=== PATIENT | female | born 1985 | race Caucasian/White ===

== ENCOUNTER → 2016-09-22 | Outpatient (CLI) | payer MEDICAID ==
[2016-09-22 15:39] LABS: CH 32.8; CHCM 35.2; HCT 34.6 % (34.0-46.0); HDW 3.37; HGB 11.8 gm/dL (11.4-16.0); MCH 32.1 pg (25.0-35.0); MCHC 34.2 g/dL (31.0-37.0); MCV 93.9 fL (80.0-100.0); Mean Platelet Volume 6.8; RBC 3.68 m/uL (3.80-5.40); RDW 14.1 % (11.5-15.5)
== END | disposition home or self-care (01) ==
LOC: LABWHC1 14:07
PROVIDERS: ATTEND Obstetrics & Gynecology
DX: Z34.82 Encounter for supervision of other normal pregnancy, second trimester (principal); Z3A.00 Weeks of gestation of pregnancy not specified
CPT/HCPCS: 36415; 82950; 85027

== ENCOUNTER → 2016-09-26 | Outpatient (CLI) | payer MEDICAID ==
[2016-09-26 12:57] LABS: Glucose 3 Hour, Gest 65 mg/dL
== END | disposition home or self-care (01) ==
LOC: LABWHC1 08:18
PROVIDERS: ATTEND Obstetrics & Gynecology
DX: O99.810 Abnormal glucose complicating pregnancy (principal); Z3A.00 Weeks of gestation of pregnancy not specified
CPT/HCPCS: 36415; 82951; 82952

== ENCOUNTER → 2016-10-17 | Outpatient (CLI) | payer MEDICAID ==
--- NOTE | 2016-10-17 09:11 | US ---
EXAMINATION TYPE: US abdomen complete DATE OF EXAM: 10/17/2016 8:17 AM COMPARISON: NONE CLINICAL HISTORY: R10.12 ABD PAIN LUQ. EXAM MEASUREMENTS: Liver Length: 15.4 cm Gallbladder Wall: 0.3 cm CBD: 0.4 cm Spleen: 12.2 cm Right Kidney: 11.5 x 5.3 x 5.9 cm Left Kidney: 10.2 x 5.5 x 4.6 cm Findings: Pancreas: limited evaluation, portions obscured by overlying bowel Liver: appears wnl Gallbladder: no evidence of stones Evidence for sonographic Fields's sign: no CBD: appears wnl Spleen: wnl Right Kidney: cystic area mid Left Kidney: no evidence of hydronephrosis or mass Upper IVC: wnl Abd Aorta: visualized portions appear wnl, bifurcation obscured Scanned LUQ within patient's area of concern, no obvious abnormality by ultrasound at this time as vi sualized The liver is homogenous. The intrahepatic portion of the IVC and proximal abdominal aorta are within normal limits. There is no evidence of cholelithiasis. Common bile duct is unremarkable. The visu alized portions of the pancreas are homogenous. The spleen is unremarkable. Kidneys are symmetric a nd free of hydronephrosis. Small subcentimeter simple cyst right kidney.. IMPRESSION: 1. Small right renal cyst. Otherwise unremarkable examination.
== END | disposition home or self-care (01) ==
LOC: RADUSWWP 07:40
PROVIDERS: ATTEND Obstetrics & Gynecology
DX: N28.1 Cyst of kidney, acquired (principal); R10.12 Left upper quadrant pain
CPT/HCPCS: 76700

== ENCOUNTER → 2016-11-06 | Outpatient (CLI) | payer MEDICAID ==
--- NOTE | 2016-11-06 15:23 | US ---
EXAMINATION TYPE: US OB anatomy transabd DATE OF EXAM: 11/06/2016 2:32 PM COMPARISON: US on PACS first trimester May 30, 2016 HISTORY: Uterine fibroid. Large for dates. TECHNIQUE: Transabdominal (TA) pelvic ultrasound. EXAM MEASUREMENTS: GESTATIONAL AGE / DATING Physician Established: (32 weeks/2 days) EDC: 12/30/2016 Dates by LMP: (32 weeks/2 days) EDC: 12/30/2016 Dates by First Scan: (32 weeks/ 2 days) EDC: 12/30/2016 Dates by Current Scan for: (32 weeks/ 4 days) EDC: 12/28/2016 SURVEY IUP: Single PLACENTA: Anterior/fundal PREVIA: No previa YAJAIRA: 20.3 cm CERVICAL LENGTH (transabdominal: norm > 3.0cm): 3.8 cm BIOMETRY PRESENTATION: Vertex LIE: Longitudinal BPD: 7.9 cm 31 weeks / 4 days HC: 29.7 cm 32 weeks / 6 days AC: 29.0 cm 33 weeks / 0 days FL: 6.5 cm 33 weeks / 3 days ESTIMATED WEIGHT IN GRAMS: 2088 grams ESTIMATED WEIGHT IN LBS/OZS: 4 lbs. 10 oz. WEIGHT PERCENTAGE BASED ON ESTABLISHED DATE: 61.7 % HC/AC: 1.0 FL/AC: 22.4 HEART RATE: 142 bpm RHYTHM: Normal ANATOMY SEEN (within normal limits): * Lateral Vent (< 1 cm) 0.7 cm * Cisterna Magna (< 1.1 cm) 0.7 cm * Nuchal Fold (< 0.6 cm) 0.6 cm * Cerebellum (varies with age) 2.5 cm Choroid Plexus (bilateral) Midline Falx Cavus Septi Pellucidi Stomach Situs Nose / Lips Diaphragm Kidneys (bilateral) Bladder Cord Insert Three Vessel Cord Longitudinal Spine Transverse Spine ANATOMY SEEN (does not appear within normal limits): ANATOMY NOT SEEN: Four Chamber Heart Outflow tracts: LVOT/RVOT Arms (bilateral) Legs (bilateral) MATERNAL WALL MEASUREMENT: cm from skin to anterior uterine wall (if exam limited due to body habitus ). Uterine fibroid to left of midline, lower uterine segment = 12.4 x 8.2 x 7.7 cm Single live intrauterine gestation is redemonstrated. Normal cephalad presentation to fetus is seen. There is no ultrasound evidence for placenta previa. Amniotic fluid index is upper limits of normal t o mildly prominent. biometry measurements are congruent and within normal limits. Detailed anatomical survey shows no suspicious abnormality during real-time scanning. No suspicious abnormality is seen on still image s saved. There is suboptimal still images saved of the upper and lower extremities as well as four-ch cheikh heart and outflow tracts. Exam is noted suboptimal due to advanced age. IMPRESSION: As above
== END | disposition home or self-care (01) ==
LOC: RADUSWWP 13:42
PROVIDERS: ATTEND Obstetrics & Gynecology
DX: O36.63X0 Maternal care for excessive fetal growth, third trimester, not applicable or unspecified (principal); Z3A.32 32 weeks gestation of pregnancy
CPT/HCPCS: 76811

== ENCOUNTER → 2016-12-01 | Outpatient (CLI) | payer MEDICAID ==
--- NOTE | 2016-12-01 12:16 | US ---
EXAMINATION TYPE: US OB anatomy transabd DATE OF EXAM: 12/01/2016 11:26 AM COMPARISON: NONE HISTORY: 31-year-old female [id number] LARGE FOR DATES, Uterine fibroid TECHNIQUE: Transabdominal (TA) FINDINGS: EXAM MEASUREMENTS: GESTATIONAL AGE / DATING Physician Established: (35 weeks/6 days) EDC: 12/30/16 Dates by LMP: unknown Dates by First Scan: (35 weeks/6 days) EDC: 12/30/16 Dates by Current Scan for: (36 weeks/1 days) EDC: 12/28/16 SURVEY IUP: Single PLACENTA: Anterior/fundal PREVIA: No previa YAJAIRA: 19.1 cm Normal CERVICAL LENGTH (transabdominal: norm > 3.0cm): 3.1 cm BIOMETRY PRESENTATION: Vertex LIE: Longitudinal BPD: 8.7 cm 35 weeks / 1 days HC: 32.1 cm 36 weeks / 2 days AC: 32.5 cm 36 weeks / 3 days FL: 7.1 cm 36 weeks / 3 days ESTIMATED WEIGHT IN GRAMS: 2886 grams ESTIMATED WEIGHT IN LBS/OZS: 6 lbs. 6 oz. WEIGHT PERCENTAGE BASED ON ESTABLISHED DATE: 61 % HC/AC: 0.99 normal FL/AC: 22% normal HEART RATE: 146 bpm RHYTHM: Normal ANATOMY SEEN (within normal limits): Cavus Septi Pellucidi Four Chamber Heart Outflow tract: LVOT Stomach Situs Nose / Lips Diaphragm Bladder Three Vessel Cord ANATOMY NOT SEEN ARE SUBOPTIMALLY VISUALIZED: due to position and age Lateral Vent (< 1 cm) Midline Falx Cisterna Magna (< 1.1 cm) Cerebellum (varies with age) Choroid Plexus (bilateral) Outflow tract: RVOT Longitudinal Spine Transverse Spine Arms (bilateral) Legs (bilateral) Cord Insert Kidneys (bilateral) [employer] NOTES: Single viable IUP 36wks/1day with ENZO of 12/28/16. Complex area (fibroid) noted le ft uterus as noted on prior exam = 13.8 x 6.9 x 9.4cm IMPRESSION: 1. Single live intrauterine with established gestational age of 35 weeks 6 days by prior da ting scan. Current ultrasound biometry is concordant (36 weeks 1 day) placing the child at the 61st p ercentile for weight. 2. A large 13.8 cm heterogeneous area, suspected fibroid is again seen along the left lower uterine s egment and appears primarily intramural.
== END | disposition home or self-care (01) ==
LOC: RADUSWWP 10:20
PROVIDERS: ATTEND Obstetrics & Gynecology
DX: O36.63X0 Maternal care for excessive fetal growth, third trimester, not applicable or unspecified (principal); Z3A.36 36 weeks gestation of pregnancy
CPT/HCPCS: 76805

== ENCOUNTER 2016-12-18 23:16 | Inpatient (IN) | payer MEDICAID ==
[2016-12-18] MEDS ORDERED: CITRIC ACID-SODIUM CITRATE 15 ML CUP PO ONE (23:31)
[2016-12-18] MEDS ORDERED: ceFAZolin 2 GM in SODIUM CHLORIDE 0.9% 100 ML IVPB ONE (23:31)
[2016-12-18] MEDS ORDERED: LACTATED RINGERS 1,000 ML IV ONE (23:31)
[2016-12-18] MEDS ORDERED: LACTATED RINGERS 1,000 ML IV SCH (23:45)
[2016-12-19 00:04] LABS: Basophils % (A) 0 %; CH 33.7; Eosinophils # (A) 0.2 k/uL (0-0.7); Eosinophils % (A) 1 %; HCT 39.2 % (34.0-46.0); HDW 3.34; HGB 13.9 gm/dL (11.4-16.0); Luc # (Auto) 0.24; Luc % (Auto) 2; Lymphocytes # (A) 1.3 k/uL (1.0-4.8); Lymphocytes % (A) 9 %; MCH 33.3 pg (25.0-35.0); MCHC 35.4 g/dL (31.0-37.0); MCV 94.2 fL (80.0-100.0); Mean Platelet Volume 6.6; Monocytes # (A) 0.6 k/uL (0-1.0); Monocytes % (A) 4 %; Neutrophils # (A) 11.3 k/uL (1.3-7.7); Neutrophils % (A) 83 %; RBC 4.16 m/uL (3.80-5.40); WBC 13.6 k/uL (3.8-10.6); WBC (Perox) 14.04
[2016-12-19] MEDS ORDERED: CELLULOSE,OXIDIZED 1 EACH EACH MISCELLANE ONE (00:20)
[2016-12-19] MEDS ORDERED: Acetaminophen-Codeine 300-30mg TAB PO PRN ×3 (00:47→00:52)
[2016-12-19] MEDS ORDERED: METOCLOPRAMIDE 5 MG/ML 2 ML VIAL IVP PRN (00:47)
[2016-12-19] MEDS ORDERED: LANOLIN CREAM 5 GM TUBE TOPICAL PRN (00:47)
[2016-12-19] MEDS ORDERED: ONDANSETRON 4 MG/2 ML VIAL IVP PRN (00:47)
[2016-12-19] MEDS ORDERED: ZOLPIDEM 5 MG TAB PO PRN (00:47)
[2016-12-19] MEDS ORDERED: ACETAMINOPHEN TAB 325 MG TAB PO PRN (00:47)
[2016-12-19] MEDS ORDERED: diphenhydrAMINE 50 MG/ML 1 ML VIAL IVP PRN ×2 (00:47→06:06)
[2016-12-19] MEDS ORDERED: diphenhydrAMINE 25 MG CAP PO PRN (00:47)
[2016-12-19] MEDS ORDERED: NALOXONE 0.4 MG/ML 1 ML VIAL IV PRN ×2 (00:47→06:06)
[2016-12-19 00:53] VITALS: BMI 29.9
[2016-12-19] MEDS ORDERED: OXYTOCIN 20 UNITS/1000 ML NS 1,000 ML IV SCH (01:00)
--- NOTE | 2016-12-19 01:13 | P.HPOB ---
History of Present Illness H&P Date: 12/19/16 Chief Complaint: Contractions and previous This patient is a pleasant 31-year-old 3 para 2 female estimated date of confinement 12/30/2016 estimated gestational age 38-3/7 weeks who presents to labor and delivery with complaints of regular painful contractions since 7: 00 this evening. Patient's had 2 previous sections and has requested repeat . is complicated by a very large uterine fibroid approximately 13 cm in dimensions. Patient was seen by maternal medicine and has had serial growth ultrasounds and antepartum testing. Patient is now found to be in active labor. Review of Systems Constitutional: Denies chills, Denies fever Ears, nose, mouth and throat: Denies headache, Denies sore throat Cardiovascular: Denies chest pain, Denies shortness of breath Respiratory: Denies cough Gastrointestinal: Reports heartburn Genitourinary: Reports Menstruation: Reports amenorrhea Musculoskeletal: Denies myalgias Integumentary: Denies pruritus, Denies rash Neurological: Denies numbness, Denies weakness Psychiatric: Denies anxiety, Denies depression Endocrine: Denies fatigue, Denies weight change Past Medical History Past Medical History: Asthma, GERD/Reflux Additional Past Medical History / Comment(s): CROHN'S, HYPOGLYCEMIA, BARRON, patient has a large uterine fibroid approximately 13 cm in dimensions History of Any Multi-Drug Resistant Organisms: None Reported Past Surgical History: Section Additional Past Surgical History / Comment(s): X2, COLONOSCOPY,EGD, left carpal tunnel Past Anesthesia/Blood Transfusion Reactions: No Reported Reaction Past Psychological History: No Psychological Hx Reported Smoking Status: Never smoker Past Alcohol Use History: Occasional Past Drug Use History: None Reported - Past Family History Father Family Medical History: No Reported History Additional Family Medical History / Comment(s): hypertension Mother Family Medical History: No Reported History Medications and Allergies Home Medications Medication Instructions Recorded Confirmed Type Multivitamins, Thera [Multivitamin] 1 each PO DAILY 04/16/15 12/19/16 History L.acidoph,Paracasei, B.lactis 1 each PO DAILY 12/19/16 12/19/16 History [Probiotic] Allergies Allergy/AdvReac Type Severity Reaction Status Date / Time infliximab [From Remicade] Allergy Anaphylaxis Verified 12/18/16 23:30 Exam - Vital Signs Vital signs: Vital Signs Temp Pulse Resp BP 12/18/16 23:30 97.2 F L 113 H 16 139/81 Intake and Output 12/18/16 12/18/16 12/19/16 14:59 22:59 06:59 Other: Weight 81.647 kg Patient Weight 12/19/16 06:59 Weight 81.647 kg - OBG Physical Exam Abdomen: bowel sounds normal, no diffuse tenderness, no bruit present, no guarding noted, no hepatomegaly, no splenomegaly, no mass Vulva: both: normal Vagina: normal moisture, no discharge Cervix: Cervix is 1-2 cm dilated percent effaced. Cervix: no lesion, no discharge Uterus: enlarged (Uterine fundal height is much larger than dates) Results blood work shows she is A positive, rubella immune, RPR nonreactive, hepatitis B negative, HIV is nonreactive, ultrasounds have shown normal anatomy with a large uterine fibroid, group B strep was negative, Glucola Was abnormal with a normal three-hour gtt. Result Diagrams: 12/18/16 23:43 Abnormal Lab Results - Last 24 Hours (Table) 12/18/16 Range/Units 23:43 WBC 13.6 H (3.8-10.6) k/uL Neutrophils # 11.3 H (1.3-7.7) k/uL Assessment and Plan (1) Third trimester Narrative/Plan: This is a pleasant 31-year-old 3 para 2 female 38-3/7 weeks gestation with previous section 2 and known large uterine fibroid. Plan is repeat section for active labor. Patient and I have discussed the surgery including the risks of infection, bleeding, possible injury to bowel, bladder, vessels, and/or other organs. Patient understands risk of DVT and pulmonary embolism. All the patient's questions are answered and a written consent is obtained. Status: Acute (2) Fibroid uterus Status: Acute (3) Previous section Status: Acute (4) Spontaneous onset of labor Status: Acute
--- NOTE | 2016-12-19 01:21 | P.OP ---
Date of Procedure: 12/19/16 Preoperative Diagnosis: #1: 38-3/7 week . #2: Active labor. #3: Large uterine fibroid. #4: Previous section 2. Postoperative Diagnosis: Same Procedure(s) Performed: Repeat low transverse section. Anesthesia: spinal Surgeon: Ruben Pedersen Inorganic Chemistry Professor #1: Penny Weaver Estimated Blood Loss (ml): 800 Pathology: other (Placenta) Condition: stable Disposition: floor Indications for Procedure: Please see dictated H&P for intimate details of this patient's admission. In brief summary this is a pleasant 31-year-old 3 para 2 female 38-3/7 weeks gestation who is admitted to labor and delivery in active labor. Patient' s had 2 previous section and was scheduled for repeat this coming Thursday. Patient has a known large uterine fibroid. Patient does understand the surgery and risks including risks of infection, bleeding, possible injury to bowel, bladder, vessels, and/or other organs. She also understands she is at increased risk of bleeding due to her uterine fibroid. All the patient's questions are answered and a written consent is obtained. Operative Findings: This patient had a vigorous viable female infant Apgars were 8 and 9 delivery time is 0012 hours. She had a approximately 13 cm left lateral uterine fibroid in the lower uterine segment that displaced the fetus up into the fundal part of the uterus. Both tubes and ovaries appear normal for term gestation. Description of Procedure: This patient had a Sousa catheter placed to straight drain. She is subsequently taken to the operating room where she is sat up and spinal anesthetic is administered without incident. With an adequate level of anesthesia she has abdominal prep and drape. Scalpels then taken in the previous Pfannenstiel incision is incised. A second scalpel is taken down to the fascia and the fascia scored with the scalpel. Fascial incision extended bilaterally using the Lund scissors. Fascia is then dissected off the rectus muscles. The rectus muscles are and the peritoneum was identified and entered sharply. Peritoneal incision extended superior and inferior without difficulty. The bladder blade is then placed. I inspected the pelvis was large fibroid the lower uterine segment a left side and the broad ligament area. The bladder is up high on the lower uterine segment this is taken down sharply with the Metzenbaums without difficulty. Then using a scalpel and make a low transverse incision above the fibroid taking special care to avoid cutting into the fibroid itself. The uterus is then entered bluntly with a hemostat and there is loss of clear fluid. The infant's head is then guided through the incision with fundal pressure we have delivery the infant's head. Mouth and nares are bulb suctioned. There is no evidence of a nuchal cord. We then have deliver the rest of this 's body. It is a vigorous viable female infant Apgars are 8 and 9 delivery time is 0012 hours. After delivery of the the umbilical cord is doubly clamped and then cut. It appears to be trivascular. The placenta is then manually extracted intact. I was able to externalize the uterus at this time and the uterine incision demarcated with Pro clamps. Uterine incision is somewhat over the fibroid on the left side using 0 Vicryl suture in a running locked fashion I closed this in 3 layers. Good hemostasis is noted. With this done, I placed a piece of Interceed over the lower uterine segment. Excellent hemostasis is noted. The uterus is placed back into the abdomen. All fluid has been removed. Final inspection shows good hemostasis. The parietal peritoneum was then closed using 0 Vicryl running fashion. Fascia is then closed using 0 PDS. Fascial incision is intact and hemostatic. Subcutaneous tissues and closed using a 3-0 Vicryl. Skin is and closed using vandana. All counts are correct 3. There are no complications. Infant and mother are taken to the birthing suite in satisfactory condition.
--- NOTE | 2016-12-19 05:46 | P.PNOBGPC ---
Subjective - Subjective Patient reports: Reports appetite normal, Reports voiding normally, Reports pain well controlled, Reports ambulating normally : doing well Objective - Vital Signs Latest vital signs: Vital Signs Temp Pulse Resp BP Pulse Ox 12/19/16 04:00 98.6 F 87 16 116/70 99 12/19/16 02:46 98.2 F 88 18 101/60 99 12/19/16 02:16 88 16 111/57 12/19/16 01:46 98.2 F 85 16 104/74 99 12/19/16 01:31 91 16 92/72 98 12/19/16 01:16 87 16 90/63 99 12/19/16 01:01 86 16 99/54 98 12/19/16 00:46 98.0 F 83 16 100/49 99 12/18/16 23:30 97.2 F L 113 H 16 139/81 Intake and Output 12/18/16 12/18/16 12/19/16 14:59 22:59 06:59 Intake Total 120 Output Total 1500 Balance -1380 Intake: Oral 120 Output: Urine 700 Estimated Blood Loss 800 Other: Weight 81.647 kg Patient Weight 12/19/16 06:59 Weight 81.647 kg - Exam Lungs: bilateral: normal Abdomen: Present: normal appearance, soft. Absent: distention, tenderness Incision: Present: normal, dry, intact Uterus: Present: normal, firm - Labs Labs: Abnormal Lab Results - Last 24 Hours (Table) 12/18/16 Range/Units 23:43 WBC 13.6 H (3.8-10.6) k/uL Neutrophils # 11.3 H (1.3-7.7) k/uL Assessment and Plan (1) Third trimester Narrative/Plan: Patient is resting without complaints. Vital signs are stable she's afebrile. Her lochia appears normal at this time. Plan today is to discontinue her catheter, advance her diet, check a CBC this morning, encourage ambulation, and allow her to shower later on. Current Visit: Yes Status: Acute Code(s): Z33.1 - STATE, INCIDENTAL SNOMED Code(s): 12252799 (2) Fibroid uterus Current Visit: No Status: Acute Code(s): D25.9 - LEIOMYOMA OF UTERUS, UNSPECIFIED SNOMED Code(s): 70634190 (3) Previous section Current Visit: No Status: Acute Code(s): Z98.89 - OTHER SPECIFIED POSTPROCEDURAL STATES * DO NOT USE * SNOMED Code(s): 598877845 (4) Spontaneous onset of labor Current Visit: No Status: Acute Code(s): ZXC1305 - SNOMED Code(s): 67385910
[2016-12-19] MEDS ORDERED: MORPHINE SULFATE 4 MG/ML SYRINGE IVP PRN (06:06)
[2016-12-19 06:53] LABS: Basophils # (A) 0.1 k/uL (0-0.2); Basophils % (A) 0 %; CH 32.7; CHCM 34.4; Eosinophils % (A) 0 %; HCT 37.1 % (34.0-46.0); HDW 3.48; HGB 12.8 gm/dL (11.4-16.0); Luc # (Auto) 0.22; Luc % (Auto) 2; Lymphocytes # (A) 1.1 k/uL (1.0-4.8); Lymphocytes % (A) 8 %; MCH 33.1 pg (25.0-35.0); MCHC 34.5 g/dL (31.0-37.0); MCV 96.1 fL (80.0-100.0); Mean Platelet Volume 7.1; Monocytes # (A) 0.6 k/uL (0-1.0); Monocytes % (A) 5 %; Neutrophils # (A) 10.5 k/uL (1.3-7.7); Neutrophils % (A) 84 %; Poikilocytosis Slight; RBC 3.86 m/uL (3.80-5.40); RDW 13.9 % (11.5-15.5); WBC 12.4 k/uL (3.8-10.6); WBC (Perox) 12.45
[2016-12-19] MEDS: KETOROLAC 30 MG/ML 1 ML VIAL IVP PRN ×3 (07:45→21:35)
[2016-12-19] MEDS: LACTATED RINGERS 1,000 ML IV SCH ×2 (09:03→10:01)
--- NOTE | 2016-12-19 09:55 | P.PN ---
Progress Note - Text Postoperative day 1 status post section under spinal anesthesia, and intrathecal morphine given for postoperative analgesia, patient doing well, there is no anesthesia related complications, further management as per her primary team
[2016-12-19] MEDS: SENNOSIDES-DOCUSATE SODIUM 1 EACH TAB PO SCH ×2 (10:01→21:37)
[2016-12-19] MEDS ORDERED: OXYTOCIN 10 UNIT/ML 1 ML VIAL ONE (23:57)
[2016-12-19] MEDS ORDERED: ONDANSETRON 4 MG/2 ML VIAL ONE (23:57)
[2016-12-19] MEDS ORDERED: ceFAZolin 1,000 MG VIAL ONE (23:57)
[2016-12-19] MEDS ORDERED: NALBUPHINE 10 MG/ML AMPUL ONE (23:57)
[2016-12-19] MEDS ORDERED: MORPHINE SULFATE (PF) 0.3 MG/0.3 ML SYR ONE (23:57)
[2016-12-19] MEDS ORDERED: LACTATED RINGERS 1,000 ML BAG IV ONE (23:57)
[2016-12-19] MEDS ORDERED: PHENYLEPHRINE-0.9% NACL SYG 1 MG/10 ML SYRINGE ONE (23:57)
[2016-12-20] MEDS: IBUPROFEN 600 MG TAB PO PRN ×3 (07:36→23:49)
[2016-12-20] MEDS: SENNOSIDES-DOCUSATE SODIUM 1 EACH TAB PO SCH ×2 (07:37→20:16)
[2016-12-20] MEDS: SIMETHICONE 80 MG CHEWABLE PO PRN ×2 (10:22→20:16)
--- NOTE | 2016-12-20 10:39 | P.PNOBGPC ---
Subjective - Subjective Principal diagnosis: Status post repeat low transverse POD #1 Interval history: Incision examined. Denies nausea, vomiting, chest pain, shortness of breath or calf pain. She is feeling some bloating but passing flatus. Patient reports: Reports appetite normal, Reports voiding normally, Reports pain well controlled, Reports ambulating normally : doing well Objective - Vital Signs Latest vital signs: Vital Signs Temp Pulse Pulse Resp BP Pulse Ox 12/20/16 08:00 97.5 F L 81 16 111/59 100 12/19/16 21:27 98.5 F 76 14 104/68 12/19/16 20:30 98 F 84 15 110/68 12/19/16 19:00 98 12/19/16 16:00 98.8 F 95 16 126/75 98 12/19/16 12:00 97.9 F 102 H 16 108/65 99 Intake and Output 12/19/16 12/20/16 12/20/16 22:59 06:59 14:59 Output Total 900 Balance -900 Output: Urine 900 - Exam Lungs: bilateral: normal Chest: Normal S1, Normal S2 Extremities: Present: normal Abdomen: Present: normal appearance, soft. Absent: distention, tenderness Incision: Present: normal, dry, intact Uterus: Present: normal, firm Assessment and Plan (1) Status post repeat low transverse section Narrative/Plan: 1. Increase ambulation 2. Pain control Current Visit: Yes Status: Acute Code(s): Z98.891 - HISTORY OF UTERINE SCAR FROM PREVIOUS SURGERY SNOMED Code(s): 953454462
[2016-12-21] MEDS: SENNOSIDES-DOCUSATE SODIUM 1 EACH TAB PO SCH (09:06)
[2016-12-21] MEDS: IBUPROFEN 600 MG TAB PO PRN (09:06)
[2016-12-21] MEDS: SIMETHICONE 80 MG CHEWABLE PO PRN (09:07)
[2016-12-21 10:18] VITALS: BP 112/65; PULSE 98; RESP 16; TEMP 98.1
--- NOTE | 2016-12-21 11:16 | P.DS ---
Providers Date of admission: 12/18/16 23:50 Expected date of discharge: 12/21/16 Attending physician: Ruben Pedersen Primary care physician: Stated None - Discharge Diagnosis(es) (1) Status post repeat low transverse section Current Visit: Yes Status: Acute Hospital Course: Presented for repeat low transverse . She underwent this procedure without complication. Her postoperative course was uncomplicated. She denies nausea, vomiting, chest pain, shortness of breath or calf pain. She did have some swelling in her feet last night which is now minimal. She also has some swelling just above the incision but no erythema and no drainage noted. This appears to be some dependent edema. Her vandana will be removed next week with Dr. Pedersen. She was instructed that if she starts having fever or chills she should contact the office. Plan - Discharge Summary New Discharge Prescriptions: Acetaminophen-Codeine 300-30mg [Tylenol w/codeine #3] 1 - 2 each PO Q4HR PRN # 30 tab PRN Reason: Pain Ibuprofen [Motrin] 600 mg PO Q6HR PRN #40 tab PRN Reason: Mild Pain Or Fever >= 100.5 Discharge Medication List Multivitamins, Thera [Multivitamin] 1 each PO DAILY 04/16/15 [History] Acetaminophen-Codeine 300-30mg [Tylenol w/codeine #3] 1 - 2 each PO Q4HR PRN # 30 tab 12/19/16 [Rx] Ibuprofen [Motrin] 600 mg PO Q6HR PRN #40 tab 12/19/16 [Rx] L.acidoph,Paracasei, B.lactis [Probiotic] 1 each PO DAILY 12/19/16 [History] Follow up Appointment(s)/Referral(s): Ruben Pedersen MD [STAFF PHYSICIAN] - 12/23/16 (Please see me on Thursday morning for staple removal.) Patient Instructions/Handouts: (DC) Activity/Diet/Wound Care/Special Instructions: No heavy lifting or strenuous activity for 6 weeks. No intercourse or anything per vagina for 6 weeks. Please call if any fever, chills, excessive vaginal bleeding, and/or abdominal pain. Discharge Disposition: HOME SELF-CARE
== END 2016-12-21 11:45 | disposition home or self-care (01) | DRG 765 ==
LOC: FBPOP 23:16 → 4FBP 23:50
PROVIDERS: ADMIT Obstetrics & Gynecology; ATTEND Obstetrics & Gynecology
PROC: 10D00Z1 Extraction of Products of Conception, Low, Open Approach (ICD-10-PCS; principal; 2016-12-19)
DX: O34.211 Maternal care for low transverse scar from previous cesarean delivery (principal); K50.90 Crohn's disease, unspecified, without complications; Z37.0 Single live birth; O99.52 Diseases of the respiratory system complicating childbirth; J45.909 Unspecified asthma, uncomplicated; K21.9 Gastro-esophageal reflux disease without esophagitis; O34.13 Maternal care for benign tumor of corpus uteri, third trimester; O99.62 Diseases of the digestive system complicating childbirth; Z3A.38 38 weeks gestation of pregnancy; Z82.49 Family history of ischemic heart disease and other diseases of the circulatory system; Z88.8 Allergy status to other drugs, medicaments and biological substances
CPT/HCPCS: 59025; 85025; 86850; 86900; 86901; 88307; 99213

== ENCOUNTER → 2017-01-27 | Outpatient (CLI) | payer MEDICAID ==
--- NOTE | 2017-01-27 17:01 | US ---
EXAMINATION TYPE: US abdomen complete DATE OF EXAM: 01/27/2017 COMPARISON: US 2017 CLINICAL HISTORY: R10.12 Left upper quadrant pain. EXAM MEASUREMENTS: Liver Length: 13.5 cm Gallbladder Wall: 0.1 cm CBD: 0.3 cm Spleen: 8.9 cm Right Kidney: 11.9 x 4.8 x 4.3 cm Left Kidney: 11.0 x 5.1 x 4.8 cm Pancreas: wnl Liver: wnl Gallbladder: wnl Evidence for sonographic Fields's sign: no CBD: wnl Spleen: hypoechoic area = 1.1 x 0.8 x 0.7 cm Right Kidney: cystic area medially = 2.0 x 1.9 x 1.4 cm Left Kidney: wnl Upper IVC: wnl Abd Aorta: wnl IMPRESSION: 1. Renal cyst. 2. Hypoechoic area within the spleen could be a complex cyst. Other etiologies are not excluded. Cons ider CT for additional evaluation.
== END | disposition home or self-care (01) ==
LOC: RADUSWWP 07:49
PROVIDERS: ATTEND Internal Medicine Gastroenterology
DX: N28.1 Cyst of kidney, acquired (principal); D73.9 Disease of spleen, unspecified
CPT/HCPCS: 76700

== ENCOUNTER → 2017-02-02 | Outpatient (CLI) | payer MEDICAID ==
--- NOTE | 2017-02-02 08:46 | CT ---
EXAMINATION TYPE: CT abdomen wo/w con DATE OF EXAM: 02/02/2017 COMPARISON: 07/10/2015 HISTORY: Crohns disease CT DLP: 554.70 mGycm Automated exposure control for dose reduction was used. TECHNIQUE: Helical acquisition of images was performed from the lung bases through the top of iliac crest to include entire abdomen. CONTRAST: Performed with Oral Contrast and without and with IV Contrast, patient injected with 100 ml mL of Omn ipaque 300. FINDINGS: LUNG BASES: No significant abnormality is appreciated. LIVER/GB: No significant abnormality is appreciated. PANCREAS: No significant abnormality is seen. SPLEEN: No significant abnormality is seen. ADRENALS: No significant abnormality is seen. KIDNEYS: Extrarenal pelvis bilaterally with no evidence of renal calcification or hydronephrosis. BOWEL: Extensive retained fecal debris. Note is made that CT only covers the abdomen and not of pelv is and therefore incompletely assessed the bowel. Stomach is decompressed and limited. LYMPH NODES: No significant abnormality is seen. OSSEOUS STRUCTURES: No significant abnormality is seen. OTHER: Small periumbilical hernia noted containing fat IMPRESSION: NO ACUTE PROCESS
== END | disposition home or self-care (01) ==
LOC: RADCTMAIN 07:24
PROVIDERS: ATTEND Internal Medicine Gastroenterology
DX: K50.90 Crohn's disease, unspecified, without complications (principal)
CPT/HCPCS: 74170; Q9967

== ENCOUNTER → 2017-02-09 | Day surgery (SDC) | payer MEDICAID ==
[~2017-02-09] MED LIST: CIPROFLOXACIN-DEXAMETH 0.3-0.1% DROPS 7.5 ML BTL BOTH EARS ONE; DEXAMETHASONE SOD PHOSPHATE 10 MG/ML 1 ML VIAL IV ONE; HYDROmorphone 1 MG/ML 1 ML SYRINGE IVP PRN; LACTATED RINGERS 1,000 ML IV SCH; LIDOCAINE 1% 20 ML VIAL (10MG/ML) FOR IV START INTRADERMA PRN; MIDAZOLAM 2 MG/2 ML VIAL IV PRN; MIDAZOLAM 2 MG/2 ML VIAL ONE; ONDANSETRON 4 MG/2 ML VIAL IVP ONE; PROPOFOL 10 MG/ML 20 ML VIAL IV ONE; Pre Op ABX Message 1 EACH MISC MISCELLANE ONE; SCOPOLAMINE 1.5MG/72HR PATCH TRANSDERM ONE; fentaNYL (PF) 50 MCG/ML 2 ML AMP ONE
--- NOTE | 2017-02-09 05:09 | HP ---
DATE OF ADMISSION: Chief complaint is fluid in both ears. This patient is a 32-year-old female who was recently seen in my office complaining of having a plugged sensation in both ears. The patient had recently been treated for a sinus infection and also bronchitis. She was placed on Augmentin and also given prednisone and subsequently she was given a Medrol Dosepak. She states that at that time her ears were quite plugged and painful. Her symptoms began 3 weeks prior to coming to my office. Eventually both eardrums ruptured and the patient states that she had blood and pus draining out of both ears. She returned to her family doctor who placed her on an extra 7 days of oral antibiotic Augmentin. The family physician also told the patient that she had a hole in each ear drum. In addition to this, she was apparently breast-feeding. After being on the antibiotic for approximately one week, the ears felt better, that is say there was no longer any pain, but they still felt plugged or blocked. At the time that she was seen in my office she was completing her course of Augmentin and clinical examination of the ears revealed evidence of bilateral chronic serous otitis media, so-called glue ear. In addition to this, she had residual perforations in both ears which appeared to be almost completely closed. She was placed on an additional 5 days of Augmentin 875 mg p.o. b.i.d. and also a dexamethasone tablets 0.75 #24. Last week she was placed on Ofloxacin ophthalmic solution, 5 drops in each ear twice daily until gone. She was seen back approximately 2-1/2 weeks later and at that time she stated that both ears still felt plugged. Clinical examination revealed she still had chronic bilateral serous otitis media, so-called glue ear. It was recommended that she undergo a bilateral myringotomy with insertion of ventilation tubes under and IV sedation with MAC. Previous surgeries include repair of left carpal tunnel, the patient is 3 para, ( ) , 3 C-sections and 0 miscarriages. She has allergies to REMICADE. Current medications include vitamins. REVIEW OF SYSTEMS: Completely unremarkable. PHYSICAL EXAMINATION: This patient is a very pleasant 32-year-old female who is alert and cooperative. HEENT EXAMINATION: Patient is normocephalic. Both tympanic membranes are dull bilaterally with fluid in both middle ear spaces. There is no evidence of perforations in either tympanic membrane. Pupils equal, round, and reactive to light and accommodation. Extraocular movements are within normal limits. Intranasal examination reveals moderate to severe septal deviation with compensatory hypertrophy of the inferior turbinates bilaterally. There is a moderate amount of clear mucus on the mucous membranes and draining down the posterior pharynx. Examination of the oropharynx, palpation of the neck, cranial nerves 2 through 12 and the remainder of the head and neck exam are all within normal limits. CHEST/CARDIOVASCULAR: Both lung barber are clear to percussion and auscultation. The patient is in regular sinus rhythm. S1 and S2 are present without evidence of any murmurs, S3s or S4s. Peripheral pulses are bilaterally symmetrical and within normal limits. ABDOMEN: There is no evidence of any masses, megaly or tenderness. The abdomen is soft. Skin is unremarkable. Musculoskeletal and neurological are within normal limits. RECTAL EXAM: The rectal exam is deferred at this time because the patient has this done on a regular basis at her family physician's office. The remainder of physical exam is essentially unremarkable. IMPRESSION: Chronic bilateral serous otitis media. PLAN: The patient is scheduled undergo a bilateral myringotomy with insertion of ventilation tubes under IV sedation with MAC in the a.m. ATTENTION RNS IN THE PRESURGICAL AREA: I have not ordered any presurgical prophylactic antibiotics for this patient. In fact it was noted on the surgical scheduling form that I requested that no presurgical prophylactic antibiotics be given. However, it is apparent that sometimes pharmacy does not pay any attention to the surgical form; therefore, if any presurgical prophylactic antibiotics are sent to the presurgical area for this patient, please cancel that order and return the medication to the pharmacy department and make sure that the patient's account is credited appropriately. I have not ordered any medications for this patient presurgically. I have explained the operation/procedure to the patient, including the risks, benefits, side effects, alternative therapies (including not receiving the proposed treatment or service), the likelihood of the patient achieving his/her goals, and potential recuperation problems for the procedure/sedation/analgesia, as well as any blood products, if indicated. I also explained to the patient the risks, benefits, and side effects of the alternatives, as well as the risks related to not receiving the proposed procedure, care treatment or services.
[2017-02-09 09:25] VITALS: RESP 16; TEMP 98.2
[2017-02-09 11:58] VITALS: BP 109/60; PULSE 78
--- NOTE | 2017-02-10 04:59 | OP ---
DATE OF SERVICE: 02/09/2017 SURGEON: TRUNG OLIVARES MD RAIL SETTER: PREOPERATIVE DIAGNOSIS: Chronic bilateral serous otitis media. POSTOPERATIVE DIAGNOSIS: Chronic bilateral serous otitis media. OPERATION: Bilateral myringotomy with insertion of Activent ventilation tubes (fluoroplastic). ANESTHESIA: IV sedation with MAC. ESTIMATED BLOOD LOSS: SPECIMENS REMOVED: COMPLICATIONS: None. OPERATIVE FINDINGS: DESCRIPTION OF PROCEDURE: The patient was placed on the operating table in the supine position after uneventful induction and IV sedation, satisfactory general anesthesia was obtained. Next, the operating microscope was brought into position over the patient's right ear where after insertion of a #3 aural speculum, the external canal was cleansed of all wax and debris. The myringotomy knife was used to make an incision in the anterior inferior quadrant of the right tympanic membrane. The middle ear space was suctioned free of all fluid and a 1.1 mm Carlitos bobbin ventilation tube was inserted without any difficulty. Attention was then directed to the left ear where the same procedure was carried out using the operating microscope, #3 aural speculum, the external auditory canal was cleansed of all wax and debris. The myringotomy knife was used to make an incision in the anterior inferior quadrant of the left tympanic membrane and the middle ear space was suctioned free of all fluid. A 1.1 mm Carlitos bobbin ventilation tube was inserted without any difficulty. At this point, the procedure was terminated. There were no intraoperative complications. The patient tolerated the procedure well and was returned to the recovery room in satisfactory condition.
== END ==
LOC: OR 09:11
PROVIDERS: ATTEND Otolaryngology
DX: H65.23 Chronic serous otitis media, bilateral (principal); J45.909 Unspecified asthma, uncomplicated; Z88.8 Allergy status to other drugs, medicaments and biological substances
CPT/HCPCS: 69436; J2250; J1100; J2405; J3010; J2704

== ENCOUNTER 2017-03-16 09:18 | Day surgery (SDC) | payer MEDICAID ==
[2017-03-12 16:03] VITALS: BMI 24.6
--- NOTE | 2017-03-16 05:20 | HP ---
CHIEF COMPLAINT: Fluid in both ears and occluded ventilation tubes. HISTORY OF PRESENT ILLNESS: This patient is a 32-year-old female who recently underwent a bilateral myringotomy with insertion of ventilation tubes for chronic bilateral serous otitis media. For a brief period of time after the surgery, the patient did well. However, she subsequently developed complaints of both ears being plugged, similar to the way it was prior to the surgery. At the time that she was seen in my office, clinical examination of the ears suggested that both ventilation tubes were occluded, most likely with dried blood. In addition to this, it appeared that there once again was fluid in both middle ear spaces. The patient was placed on several courses of oral steroids, antibiotics and antibiotic ear drops with no improvement. It was therefore recommended that she undergo a repeat bilateral myringotomy with insertion of ventilation tubes. I advised the patient at the time that she was seen in my office that I would replace the present plastic ventilation tubes with titanium tubes, which are less likely to become occluded. Past medical history reveals the patient has an allergy to REMICADE. Current medications include [id number] multivitamins. Previous surgeries include repair of a left carpal tunnel, bilateral myringotomy with insertion of ventilation tubes. The patient is 3 para, ( ) , 3 C-sections and 0 miscarriages. Review of systems is completely unremarkable. PHYSICAL EXAMINATION: The patient is a very pleasant 32-year-old female who is alert and cooperative. HEENT EXAMINATION: The patient is normocephalic. Examination of the ears reveals that both ventilation tubes appear to be occluded and there is fluid in both middle ear spaces. Pupils are equal, round and reactive to light and accommodation. Extraocular movements are within normal limits. Intranasal examination reveals moderate septal deviation with compensatory hypertrophy on the inferior turbinates and a moderate amount of mucus on the mucous membranes and draining down the posterior pharynx. Cranial nerves 2 through 12 and the remainder of the head and neck exam are all within normal limits. CHEST/CARDIOVASCULAR: Both lung barber are clear to percussion and auscultation. The patient is in regular sinus rhythm. S1 and S2 are present without evidence of any murmurs, S3s or S4s. Peripheral pulses are bilaterally symmetrical. ABDOMEN: There is no evidence of any masses, megaly or tenderness. The abdomen is soft. Skin is unremarkable. Musculoskeletal and neurological are within normal limits. PELVIC/RECTAL EXAM: The pelvic/rectal exam is deferred at this time because the patient has this done on a regular basis at her family physicians's office. The remainder of the physical exam is essentially unremarkable. IMPRESSION: Chronic bilateral serous otitis media with occluded ventilation tubes. PLAN: The patient is scheduled to undergo a bilateral myringotomy with insertion of titanium ventilation tubes under IV sedation with MAC or possibly general anesthesia, dependent upon the anesthesia department's preference. ATTENTION RNS IN THE PRESURGICAL AREA: I have not ordered any presurgical prophylactic antibiotics for this patient. If the pharmacy department sends any presurgical prophylactic antibiotics to the presurgical area for this patient, that order should be canceled and the medication should be returned to pharmacy and make sure that the patient's account is credited appropriately. I have discussed the risks, benefits and alternative therapies for the above- mentioned procedure and for both sedation/analgesia as well as necessary blood product administration, if indicated, as they pertain to this patient. The patient has indicated his or her understanding and acceptance of the risks and procedures discussed. FERNANDO
[~2017-03-16 09:18] MED LIST changes: -CIPROFLOXACIN-DEXAMETH 0.3-0.1% DROPS 7.5 ML BTL BOTH EARS ONE; -LIDOCAINE 1% 20 ML VIAL (10MG/ML) FOR IV START INTRADERMA PRN; -MIDAZOLAM 2 MG/2 ML VIAL ONE; -PROPOFOL 10 MG/ML 20 ML VIAL IV ONE; -fentaNYL (PF) 50 MCG/ML 2 ML AMP ONE
[2017-03-16] MEDS ORDERED: LIDOCAINE 1% 20 ML VIAL (10MG/ML) FOR IV START INTRADERMA ONE (09:44)
[2017-03-16] MEDS ORDERED: fentaNYL (PF) 50 MCG/ML 2 ML AMP ONE (10:09)
[2017-03-16] MEDS ORDERED: LIDOCAINE 1% INJ 10MG/ML (20 ML MDV) ONE (10:09)
[2017-03-16] MEDS ORDERED: MIDAZOLAM 2 MG/2 ML VIAL ONE (10:09)
[2017-03-16] MEDS ORDERED: PROPOFOL 10 MG/ML 20 ML VIAL IV ONE (10:09)
[2017-03-16] MEDS ORDERED: OFLOXACIN 0.3% OTIC DROPS 5 ML BTL BOTH EARS ONE (10:23)
[2017-03-16 10:47] VITALS: TEMP 98.2
[2017-03-16 11:16] VITALS: RESP 18
[2017-03-16 11:55] VITALS: BP 97/68; PULSE 72
--- NOTE | 2017-03-16 17:41 | OP ---
DATE OF SURGERY: 03/16/2017 PREOPERATIVE DIAGNOSIS: Chronic bilateral serous otitis media with retained ventilation tubes. POSTOPERATIVE DIAGNOSIS: Chronic bilateral serous otitis media with retained ventilation tubes. OPERATING SURGEON: Dr. Butler. COMPLICATIONS: None. OPERATIVE PROCEDURE: Bilateral myringotomy with insertion of Gen titanium ventilation tubes and removal of Activent Flouroplastic ventilation tubes. OPERATIVE PROCEDURE: The patient was placed on the operating table in supine position. After uneventful induction and IV sedation, satisfactory sedated state was attained. Next, attention was directed to the patient's right ear where, using the Zeiss operating microscope and a #3 aural speculum, the right external auditory canal was cleansed of all wax and debris. Next, a small incision was made inferiorly along the rim of the retained ventilation tube and the tube was grasped with a pair of alligator forceps and was very easily removed. The tube itself appeared to be patent; however, a small amount of serous fluid was suctioned free from the right middle ear space. Next an incision was made in the anterior/inferior quadrant of the right tympanic membrane, which included the old residual perforation left by removing the old tube. After removing all the fluid from the right ear, which was not a large amount of fluid, a Gen titanium ventilation tube was inserted into the myringotomy incision without any difficulty. Attention was then directed to the left ear, where the same procedure was carried out using the Zeiss operating microscope and a #3 aural speculum. The left external auditory canal was cleansed of all wax and debris. It is to be noted that the patient's canals are somewhat stenotic, although this did not appear to obscure my vision during the procedures. Next a small incision was made inferiorly near the collar of the ventilation tube. This freed the ventilation tube up, and using an alligator, it was gently rocked out of the tympanic membrane and subsequently was discarded. It is to be noted that the tube on the left side also did not appear to be occluded. There was some serous fluid in the left middle ear space, and this was suctioned free. The myringotomy incision was then made in the anterior/ inferior quadrant of the left tympanic membrane in such a fashion that it encompassed the residual perforation which had been left by removed the old ventilation tube. Next a Gen titanium ventilation tube was inserted through the previously made myringotomy incision without any difficult whatsoever. At this point, the procedure was terminated. There were no intraoperative complications. The patient tolerated the procedure well and was returned to the recovery room in satisfactory condition. It is also to be noted that through the myringotomy incision some of the ossicles were visible, and they appeared to be intact and in their normal position. FERNANDO
== END 2017-03-16 12:19 | disposition home or self-care (01) ==
LOC: OR 09:18
PROVIDERS: ATTEND Otolaryngology
DX: H65.23 Chronic serous otitis media, bilateral (principal); T85.898A Other specified complication of other internal prosthetic devices, implants and grafts, initial encounter; Z88.8 Allergy status to other drugs, medicaments and biological substances
CPT/HCPCS: 69436; J2250; J2405; J2001; J3010; J2704

== ENCOUNTER → 2017-03-17 | Outpatient (CLI) | payer MEDICAID ==
--- NOTE | 2017-03-17 11:08 | US ---
EXAMINATION TYPE: US transvaginal DATE OF EXAM: 03/17/2017 COMPARISON: US OB 2017 CLINICAL HISTORY: D25.9 Leiomyoma Of Uterus, Unspecified. TECHNIQUE: Transvaginal (TV) Date of LMP: 2015 as patient is still nursing from December post status EXAM MEASUREMENTS: Uterus: 8.9 x 9.5 x 6.3 cm Endometrial Stripe: 0.6 cm Right Ovary: 3.2 x 1.9 x 2.3 cm Left Ovary: 3.2 x 2.3 x 2.3 cm 1. Uterus: Anteverted; large heterogeneous uterine mass left myometrium = 6.4 x 7.1 x 3.3cm and may be single fibroid or consolidation of multiple. 2. Endometrium: unable to correlate thickness with 2016 LMP 3. Right Ovary: multifollicular with largest = 1.8 x 1.4 x 1.0cm 4. Left Ovary: multifollicular with largest = 2.0 x 1.7 x 1.5cm 5. Bilateral Adnexa: wnl 6. Posterior cul-de-sac: wnl IMPRESSION: 1. Bilateral ovarian cysts. 2. Uterine mass compatible with a fibroid
== END | disposition home or self-care (01) ==
LOC: RADUSWWP 09:05
PROVIDERS: ATTEND Obstetrics & Gynecology
DX: N83.201 Unspecified ovarian cyst, right side (principal); N83.202 Unspecified ovarian cyst, left side; D25.9 Leiomyoma of uterus, unspecified
CPT/HCPCS: 36415; 76830; 80061; 82607; 82652; 82746; 84443; 85025; 85652

== ENCOUNTER → 2017-03-17 | Outpatient (CLI) | payer MEDICAID ==
[2017-03-17 10:12] LABS: Basophils % (A) 1 %; CH 30.8; CHCM 34.9; Eosinophils # (A) 0.2 k/uL (0-0.7); Eosinophils % (A) 5 %; HCT 38.3 % (34.0-46.0); HDW 3.24; HGB 12.9 gm/dL (11.4-16.0); Luc # (Auto) 0.09; Luc % (Auto) 2; Lymphocytes # (A) 0.9 k/uL (1.0-4.8); Lymphocytes % (A) 18 %; MCHC 33.8 g/dL (31.0-37.0); MCV 88.8 fL (80.0-100.0); Monocytes # (A) 0.2 k/uL (0-1.0); Monocytes % (A) 4 %; Neutrophils # (A) 3.6 k/uL (1.3-7.7); Neutrophils % (A) 71 %; RBC 4.32 m/uL (3.80-5.40); RDW 14.5 % (11.5-15.5); WBC 5.1 k/uL (3.8-10.6); WBC (Perox) 5.44
[2017-03-17 13:29] LABS: Erythrocyte Sedimentation Rate 14 mm/hr (0-20)
== END | disposition home or self-care (01) ==
LOC: LABWHC1 09:32
PROVIDERS: ATTEND Family Medicine
DX: Z00.00 Encounter for general adult medical examination without abnormal findings (principal); E78.5 Hyperlipidemia, unspecified; E55.9 Vitamin D deficiency, unspecified; K50.90 Crohn's disease, unspecified, without complications
CPT/HCPCS: 36415; 80061; 82607; 82652; 82746; 84443; 85025; 85652

== ENCOUNTER 2017-04-10 07:55 | Day surgery (SDC) | payer MEDICAID ==
[2017-04-07 16:01] VITALS: BMI 24.6
[~2017-04-10 07:55] MED LIST changes: -DEXAMETHASONE SOD PHOSPHATE 10 MG/ML 1 ML VIAL IV ONE; -HYDROmorphone 1 MG/ML 1 ML SYRINGE IVP PRN; -MIDAZOLAM 2 MG/2 ML VIAL IV PRN; -ONDANSETRON 4 MG/2 ML VIAL IVP ONE; -Pre Op ABX Message 1 EACH MISC MISCELLANE ONE; -SCOPOLAMINE 1.5MG/72HR PATCH TRANSDERM ONE
[2017-04-10] MEDS ORDERED: LIDOCAINE 1% 20 ML VIAL (10MG/ML) FOR IV START INTRADERMA ONE (08:00)
[2017-04-10 08:15] VITALS: RESP 16; TEMP 97.9
[2017-04-10] MEDS ORDERED: PROPOFOL 10 MG/ML 20 ML VIAL IV ONE (08:39)
--- NOTE | 2017-04-10 09:06 | P.PCN ---
Date of Procedure: 04/10/17 Preoperative Diagnosis: Postoperative Diagnosis: Procedure(s) Performed: Brief history: Patient is a pleasant scheduled for an elective upper endoscopy as well as colonoscopy as a part of evaluation of left upper quadrant abdominal pain for the last 1 year duration. She also has history of Crohn's ileocolitis diagnosed in 2002. Last colonoscopy was 2 years ago. She is presently on no maintenance medications. She was treated with Remicade infusions but developed ALLERGIC reaction and hence stopping 2 years ago. Procedure performed: Esophagogastroduodenoscopy with biopsy Colonoscopy with biopsy Preoperative diagnosis: Left upper quadrant abdominal pain of one year duration Floxin history of Crohn's ileocolitis diagnosed in 2002 Anesthesia: MAC Procedure: After informed consent was obtained from the patient was brought into the endoscopy unit and IV sedation was administered by anesthesia under continuous monitoring. Initially upper endoscopy was done. The Olympus GF 160 video endoscope was inserted inserted into the mouth and esophagus intubated without any difficulty and was gradually advanced into the stomach and duodenum and carefully examined. The bulb and second part of the duodenum appeared normal. The scope was then withdrawn into the stomach adequately insufflated with air and upon careful examination the antrum appeared normal. In the proximal body of the stomach there was some erythema identified and biopsies were done from this area. The rest of the body, cardia and fundus appeared normal. The scope was then withdrawn into the esophagus. The GE junction was located at 40 cm to the incisors. It appeared regular with no erythema erosions or ulcerations. Rest of the esophagus appeared normal. Patient tolerated the procedure well. At this time the patient continued to remain sedation. Initial digital rectal exareveal any matters skin tags.Olympus CF 160 video colonoscope was then inserted into the rectum and gradually advanced to the cecum without any difficulty. Careful examination was performed as the scope was gradually being withdrawn. The prep was excellent. there were scattered erosions or ulcerations noted in the base of the cecum as well as along the ileocecal valve and multiple biopsies were done from this area. A few patchy areas of erythema and erosions noted in the ascending colon but the transverse up colon appeared entirely normal. In the descending colon extending from 40-45 cm from the anal verge there was some luminal narrowing identified and scattered serpiginous ulcerations consistent with active colitis. Scattered erosions were also noted in the sigmoid colon and the rectum and biopsies were done from this area. Patient tolerated the procedure well. Impression: 1. Upper endoscopy revealed mild gastritis but no evidence of esophagitis or peptic ulcer disease 2. Colonoscopy revealed active colitis with patchy mucosal erythema and scattered erosions involving the sigmoid colon, descending colon and parts of ascending colon consistent with active colitis. There was early narrowing noted in the descending colon extending from 40-45 cm from the anal verge with serpiginous ulcerations in this area. Recommendations: Findings of this examination were discussed with the patient as well as her family. She was advised to follow with the biopsy results. She will be seen in office in 2 weeks from now to discuss the biopsy results. Implants: Indications for Procedure: Operative Findings: Description of Procedure:
[2017-04-10 09:34] VITALS: BP 109/77; PULSE 77
== END 2017-04-10 10:05 | disposition home or self-care (01) ==
LOC: ORWHC2ENDO 07:55
PROVIDERS: ATTEND Internal Medicine Gastroenterology
DX: K29.50 Unspecified chronic gastritis without bleeding (principal); K52.9 Noninfective gastroenteritis and colitis, unspecified; K50.90 Crohn's disease, unspecified, without complications; K21.9 Gastro-esophageal reflux disease without esophagitis; J45.909 Unspecified asthma, uncomplicated; D25.9 Leiomyoma of uterus, unspecified; Z79.899 Other long term (current) drug therapy; Z88.8 Allergy status to other drugs, medicaments and biological substances
CPT/HCPCS: 81025; 88305; 88342; 45380; 43239; J2704

== ENCOUNTER → 2017-04-29 | Outpatient (CLI) | payer MEDICAID ==
--- NOTE | 2017-04-29 16:15 | CT ---
EXAMINATION TYPE: CT iac wo con DATE OF EXAM: 04/29/2017 COMPARISON: NONE HISTORY: 32-year-old female with bilateral ear pain and pressure post tube placement CT DLP: 150 mGycm Automated exposure control for dose reduction was used. TECHNIQUE: Contiguous high-resolution axial scanning of the temporal bones performed without IV cont rast . Coronal reformatted images obtained. FINDINGS: There is no abnormality of visualized intracranial structures. The skull base appears normal. There are tubes within bilateral tympanic membranes. There is some bilateral density in the superior mastoid air cells, attic, and extending into the epit ympanum on both sides. This is not causing erosive changes. No scutal blunting. Tubes appear to be ap propriately positioned. No opacification of the remainder of the middle ear cavities. There is no abnormality of middle ear ossicles. The region of the round and oval windows are normal. There is no abnormality of bony labyrinths. The vestibular aqueduct are well visualized. The facial nerve canal is normal bilaterally. The internal auditory canal and meati are symmetrical bilaterally. There is no evidence of fractures. Paranasal sinuses are clear. Reformatted images confirm above findings. IMPRESSION: 1. Bilateral tubes in place along the tympanic membranes. 2. Some mild symmetrical soft tissue or fluid density along the attic and epitympanum on both sides c ould represent residual postinflammatory changes. The remainder of the middle ear cavities are clear.
== END | disposition home or self-care (01) ==
LOC: RADCTMAIN 15:14
PROVIDERS: ATTEND Otolaryngology Otology & Neurotology
DX: H70.13 Chronic mastoiditis, bilateral (principal)
CPT/HCPCS: 70480

== ENCOUNTER → 2018-04-02 | Outpatient (CLI) | payer MEDICAID ==
[2018-04-02 10:09] LABS: Basophils # (A) 0.1 k/uL (0-0.2); Basophils % (A) 1 %; Eosinophils # (A) 0.2 k/uL (0-0.7); Eosinophils % (A) 2 %; HCT 43.8 % (34.0-46.0); HGB 13.9 gm/dL (11.4-16.0); Lymphocytes # (A) 0.9 k/uL (1.0-4.8); Lymphocytes % (A) 14 %; MCH 27.4 pg (25.0-35.0); MCHC 31.6 g/dL (31.0-37.0); MCV 86.8 fL (80.0-100.0); Mean Platelet Volume 6.7; Monocytes # (A) 0.3 k/uL (0-1.0); Monocytes % (A) 5 %; Neutrophils # (A) 4.9 k/uL (1.3-7.7); Neutrophils % (A) 77 %; Platelet Count 291 k/uL (150-450); RBC 5.05 m/uL (3.80-5.40); RDW 14.2 % (11.5-15.5); WBC 6.3 k/uL (3.8-10.6)
[2018-04-02 10:45] LABS: ALT 28 U/L (9-52); AST 21 U/L (14-36); Alkaline Phosphatase 76 U/L (38-126); Anion Gap 5 mmol/L; Blood Urea Nitrogen 16 mg/dL (7-17); Calcium 8.8 mg/dL (8.4-10.2); Carbon Dioxide 26 mmol/L (22-30); Chloride 108 mmol/L (98-107); Cholesterol 148 mg/dL (<200); Glucose 89 mg/dL (74-99); HDL Cholesterol 64 mg/dL (40-60); LDL Cholesterol,Calculated 74 mg/dL (0-99); Potassium 4.4 mmol/L (3.5-5.1); Sodium 139 mmol/L (137-145); Total Protein 6.7 g/dL (6.3-8.2); Triglycerides 52 mg/dL (<150)
== END | disposition home or self-care (01) ==
LOC: LABWHC1 09:21
PROVIDERS: ATTEND Family Medicine
DX: Z00.00 Encounter for general adult medical examination without abnormal findings (principal); E55.9 Vitamin D deficiency, unspecified; K50.10 Crohn's disease of large intestine without complications; E78.2 Mixed hyperlipidemia
CPT/HCPCS: 36415; 80053; 80061; 82306; 84443; 85025

== ENCOUNTER → 2018-04-15 | Outpatient (CLI) | payer MEDICAID ==
--- NOTE | 2018-04-15 08:16 | US ---
EXAMINATION TYPE: US abdomen complete DATE OF EXAM: 04/15/2018 COMPARISON: CT 2017. US 2017 CLINICAL HISTORY: R1012 LUQ PAIN,R102 PELVIC AND PERINEAL PAIN. Pt breast feeding 15 months, pain lug 2 years history large fibroid, and irritable bowel EXAM MEASUREMENTS: Liver Length: 14.2 cm Gallbladder Wall: 0.3 cm CBD: 0.2 cm Spleen: 11.7 cm Right Kidney: 10.8 x 3.3 x 4.7 cm Left Kidney: 10.7 x 4.9 x 4.5 cm Pancreas: Tail obscured by overlying bowel gas Liver: wnl Gallbladder: wnl Evidence for sonographic Fields's sign: No CBD: wnl Spleen: wnl Right Kidney: medial 2.6 x 2.0 x 2.4 cm cystic non vascular , cyst Left Kidney: wnl Upper IVC: wnl Abd Aorta: wnl The liver is homogenous. The intrahepatic portion of the IVC and proximal abdominal aorta are within normal limits. There is no evidence of cholelithiasis. Common bile duct is unremarkable. The visu alized portions of the pancreas are homogenous. The spleen is unremarkable. Kidneys are symmetric a nd free of hydronephrosis. No solid renal lesions are seen. IMPRESSION: 1. Simple cyst right kidney.
--- NOTE | 2018-04-15 08:22 | US ---
EXAMINATION TYPE: US pelvic complete DATE OF EXAM: 04/15/2018 COMPARISON: CT 2017, US 2017 CLINICAL HISTORY: R1012 PUQ PAIN,R102 PELVIC AND PERINEAL PAIN. History of large fibroid TECHNIQUE: . Transabdominal sonographic images of the pelvis were acquired. Date of LMP: breast feeding 15 months , irritable bowel EXAM MEASUREMENTS: Uterus: 11.4 x 6.3 x 5.3 cm Endometrial Stripe: 1.3 cm Right Ovary: 3.4 x 3.2 x 3.1 cm Left Ovary: wnl cm 1. Uterus: large 6.3 x4.4 x 3.0 cm, large left pedunculated fibroid vs adnexa mass 7.4 x 6.3 x 9.4 cm vascular 2. Endometrium: wnl 3. Right Ovary: small cyst 1.3 x 0.8 x 0.7 cm 4. Left Ovary: wnl 5. Bilateral Adnexa: large left pedunculated fibroid vs adnexa mass 7.4 x 6.3 x 9.4 cm vascular 6. Posterior cul-de-sac: wnl IMPRESSION: 1. Uterus is enlarged. 2. Pedunculated leiomyoma versus left adnexal mass. Consider CT correlation. Small follicular cyst ri ght ovary.
== END | disposition home or self-care (01) ==
LOC: RADUSWWP 07:21
PROVIDERS: ATTEND Family Medicine
DX: N28.1 Cyst of kidney, acquired (principal); N83.01 Follicular cyst of right ovary; N85.2 Hypertrophy of uterus
CPT/HCPCS: 76700; 76856

== ENCOUNTER → 2018-05-20 | Outpatient (CLI) | payer MEDICAID ==
--- NOTE | 2018-05-20 16:58 | MR ---
MR chest with and without contrast HISTORY: Pain left lower rib area Multiplanar multisequence and postcontrast images obtained following 5.5 cc Gadavist IV through the c hest. Comparison to ultrasound abdomen 04/15/2018, CT abdomen 02/02/2017 The previously described simple cyst right kidney is actually related to an extrarenal pelvis, bilate ral extrarenal pelves are present. Gallbladder is normal. Spleen shows no mass. Liver is unremarkable . Adrenal glands are normal. Pancreas is normal. There is no ascites or retroperitoneal adenopathy. A cheli shows normal caliber. No evident pleural effusion. No mediastinal adenopathy. Aorta is patent. N o evident aneurysm. At the site of patient's symptomatology in the left lower chest there is an overlying marker to denot e the site of patient's symptoms. There is no evident mass. No abnormality evident at the level of th e costochondral cartilage at this level. IMPRESSION: Correlate for possible costochondritis. Bone scan may be of benefit to assess for increas ed uptake at the site of patient's symptomatology. No evident underlying abnormality.
== END | disposition home or self-care (01) ==
LOC: RADMRIMAIN 09:45
PROVIDERS: ATTEND Family Medicine
DX: R07.82 Intercostal pain (principal)
CPT/HCPCS: 71552

== ENCOUNTER → 2018-05-21 | Outpatient (CLI) | payer MEDICAID ==
--- NOTE | 2018-05-21 16:42 | MR ---
Pelvic MRI HISTORY: Leiomyoma. Multiplanar multisequence and postcontrast images of pelvis following 5.5 cc Gadavist IV. Correlation to ultrasound pelvis 04/15/2018, CT abdomen pelvis 02/02/2017 There is an enlarged uterus. Large fundal mass is present towards the left of midline measuring appro ximately 13 x 10 x 10 cm which is isointense on T1-weighted sequences, mixed intermediate signal on T 2 weighted sequences, there is near uniform enhancement following contrast administration. Vascular f low voids are associated with the periphery of the mass. There is mass effect on the endometrium and bladder. Nabothian cysts are noted incidentally. Left ovary shows an associated T2 signal intense les ion compatible with cyst measuring 2.7 cm. Right ovary shows multiple follicles, dominant cyst measur es approximately 16 mm. There is some free fluid in the cul-de-sac. No evident pelvic adenopathy. Bone marrow signal is maintained. IMPRESSION: Findings compatible with a large leiomyoma
== END | disposition home or self-care (01) ==
LOC: RADMRIMAIN 09:49
PROVIDERS: ATTEND Family Medicine
DX: D25.9 Leiomyoma of uterus, unspecified (principal)
CPT/HCPCS: 72197; A9581

== ENCOUNTER → 2018-07-26 | Outpatient (CLI) | payer MEDICAID ==
--- NOTE | 2018-07-26 16:37 | US ---
EXAMINATION TYPE: US pelvic complete DATE OF EXAM: 07/26/2018 COMPARISON: 04/15/2018 CLINICAL HISTORY: D25.9 UTERINE FIBROID. Hx of fibroid and c-sections TECHNIQUE: Transabdominal (TA). Transvaginal ultrasound deferred due to enlarged uterine size and fibroid. Date of LMP: 06/29/2018, EXAM MEASUREMENTS: Uterus: 14.2 x 7.7 x 6.0 cm Endometrial Stripe: 1.1 cm Right Ovary: 3.3 x 2.7 x 2.2 cm Left Ovary: 3.8 x 3.0 x 2.3 cm 1. Uterus: Anteverted Enlarged in size. Left previously seen fibroid currently measures 10.2 x 11 .0 x 8.7 cm . This is larger than the previous measurement of 9.4 x 7.4 x 6.3 cm. 2. Endometrium: wnl 3. Right Ovary: dominant follicle seen 4. Left Ovary: Simple Cystic appearing lesion seen with internal echoes = 1.9 x 1.7 x 1.6 cm 5. Bilateral Adnexa: wnl 6. Posterior cul-de-sac: free fluid seen IMPRESSION: 1. Enlarged uterine fibroid. 2. Cyst on the left ovary.
== END | disposition home or self-care (01) ==
LOC: RADUSWWP 12:21
PROVIDERS: ATTEND Obstetrics & Gynecology
DX: D25.9 Leiomyoma of uterus, unspecified (principal); N83.202 Unspecified ovarian cyst, left side
CPT/HCPCS: 76856

== ENCOUNTER → 2018-10-20 | Outpatient (CLI) | payer MEDICAID ==
[2018-10-20 12:08] LABS: Basophils # (A) 0.1 k/uL (0-0.2); Basophils % (A) 1 %; Eosinophils # (A) 0.3 k/uL (0-0.7); Eosinophils % (A) 6 %; HCT 31.7 % (34.0-46.0); HGB 9.2 gm/dL (11.4-16.0); Hypochromasia Marked; Lymphocytes % (A) 17 %; MCH 21.4 pg (25.0-35.0); MCV 73.7 fL (80.0-100.0); Mean Platelet Volume 6.2; Microcytosis Slight; Monocytes # (A) 0.5 k/uL (0-1.0); Monocytes % (A) 9 %; Neutrophils # (A) 3.6 k/uL (1.3-7.7); Neutrophils % (A) 64 %; Platelet Count 293 k/uL (150-450); RDW 14.9 % (11.5-15.5); WBC 5.6 k/uL (3.8-10.6)
[2018-10-20 12:23] LABS: Anion Gap 7 mmol/L; Blood Urea Nitrogen 13 mg/dL (7-17); Calcium 8.4 mg/dL (8.4-10.2); Carbon Dioxide 24 mmol/L (22-30); Chloride 109 mmol/L (98-107); Glucose 93 mg/dL (74-99); Potassium 4.3 mmol/L (3.5-5.1); Sodium 140 mmol/L (137-145)
== END | disposition home or self-care (01) ==
LOC: LABPAT 11:18
PROVIDERS: ATTEND Obstetrics & Gynecology
DX: Z01.812 Encounter for preprocedural laboratory examination (principal)
CPT/HCPCS: 36415; 80048; 85025

== ENCOUNTER 2018-10-27 06:01 | Inpatient (IN) | payer MEDICAID ==
--- NOTE | 2018-10-26 07:32 | P.HPOB ---
History of Present Illness H&P Date: 10/26/18 Chief Complaint: Uterine fibroids, menorrhagia, pelvic pain, secondary anemia This patient is a pleasant 33-year-old 3 para 3 female with known large uterine fibroids whose had worsening menorrhagia and pelvic pain and secondary anemia. Patient's most recent ultrasound showed a fibroids to be 10 cm in dimensions. She's had these fibroids for many years and the size back in 2012 was 5.5 cm. Patient did have a baby approximately 2 years ago and fibroid was noted to be in the left broad ligament. It did shrink after having her baby however now is increasing again in size and she is having more bleeding and pain from this. Patient's had 3 previous sections. At this point her anemia is significant enough and pain proceeding with definitive surgery. Due to the size fibroid and location unfortunately she is not a laparoscopic candidate and therefore we'll proceed with abdominal surgery. Plan is total abdominal hysterectomy with bilateral salpingectomy and possible oophorectomy. Review of Systems Constitutional: Reports as per HPI Genitourinary: Reports menorrhagia, Reports pelvic pain Menstruation: Reports menses 8 or > days Past Medical History Past Medical History: Asthma Additional Past Medical History / Comment(s): CROHN'S, HYPOGLYCEMIA, hx. POTS- has not had any recent problems, patient has a large uterine fibroid approximately 10 cm in dimensions, heavy periods, no current problems w/asthma, kidney stones History of Any Multi-Drug Resistant Organisms: None Reported Past Surgical History: Section, Ear Surgery Additional Past Surgical History / Comment(s): X3, COLONOSCOPY,EGD, l eft carpal tunnel, myringtomy & tubes Past Anesthesia/Blood Transfusion Reactions: No Reported Reaction Past Psychological History: No Psychological Hx Reported Smoking Status: Never smoker Past Alcohol Use History: None Reported Past Drug Use History: None Reported - Past Family History Father Family Medical History: No Reported History Additional Family Medical History / Comment(s): hypertension Mother Family Medical History: No Reported History Medications and Allergies Home Medications Medication Instructions Recorded Confirmed Type Cholecalciferol [Vitamin D3] 4,000 unit PO HS 02/04/17 10/25/18 History [place]-3 Fatty Acids [[place]-3] 1 tab PO DAILY 02/04/17 10/25/18 History Apriso(Mesalamine) 4 tab PO HS 10/25/18 10/25/18 History Iron Bisglycinate 25 mg PO HS 10/25/18 10/25/18 History Allergies Allergy/AdvReac Type Severity Reaction Status Date / Time infliximab [From Remicade] Allergy Anaphylaxis Verified 10/22/18 12:13 morphine AdvReac Nausea & Verified 10/22/18 12:15 [From Duramorph (PF)] Vomiting Exam - OBG Physical Exam Abdomen: bowel sounds normal, no diffuse tenderness, no bruit present, no guarding noted, no hepatomegaly, no splenomegaly, no mass Vulva: both: normal Vagina: normal moisture, no discharge Uterus: enlarged (Uterus is approximately 14-16 weeks size) Results Transvaginal ultrasound on July 26 showed her uterus to be 14 x 7 cm. There is a large left fibroid measuring 10.2 x 11 cm. Ovaries appear normal Assessment and Plan Assessment: This is a pleasant 33-year-old 3 para 3 female with large uterine fibroid, menorrhagia, pelvic pain, and secondary anemia. Patient is requesting definitive surgery at this time. Plan is to proceed with a total Narciso hysterectomy, bilateral salpingectomy. Plan is for ovarian conservation however the patient knows there is risk of oophorectomy given the location of her fibroid. Patient had a very long discussion about the surgery and risks. She understands due to her 3 previous sections, the location of her fibroid in size, she is at significant increased risk of surgical complications including but not limited to bleeding, infection, possible injury to bowel, bladder, ureter, and/or other organs. She understands there is risk of DVT and pulmonary embolism with any pelvic surgery. She understands if she were to have any type of urinary or other injury at this could require further surgery and/or prolonged catheterization. All the patient's questions have been answered and a written consent is obtained. (1) Fibroid uterus Status: Acute Code(s): D25.9 - LEIOMYOMA OF UTERUS, UNSPECIFIED SNOMED Code(s): 44185773 (2) Menorrhagia Status: Acute Code(s): N92.0 - EXCESSIVE AND FREQUENT MENSTRUATION WITH REGULAR CYCLE SNOMED Code(s): 705963789 (3) Anemia Status: Acute Code(s): D64.9 - ANEMIA, UNSPECIFIED SNOMED Code(s): 196977497
[~2018-10-27 06:01] MED LIST changes: +DEXAMETHASONE SOD PHOSPHATE 10 MG/ML 1 ML VIAL IV ONE; +LIDOCAINE 1% 20 ML VIAL (10MG/ML) FOR IV START INTRADERMA PRN; +MIDAZOLAM (PF) 2 MG/2 ML VIAL IV PRN; +ONDANSETRON 4 MG/2 ML VIAL IVP ONE; +SCOPOLAMINE 1.5MG/72HR PATCH TRANSDERM ONE; +ceFAZolin IN SWFI 2 GM/20 ML SYRINGE IVP ONE
[2018-10-27] MEDS ORDERED: fentaNYL (PF) 50 MCG/ML 2 ML AMP INTRATHECA ONE (07:08)
[2018-10-27] MEDS ORDERED: MORPHINE SULFATE (PF) 0.3 MG/0.3 ML SYR ONE (07:25)
[2018-10-27] MEDS ORDERED: fentaNYL (PF) 50 MCG/ML 2 ML AMP ONE (07:25)
[2018-10-27] MEDS ORDERED: ROCURONIUM BROMIDE 10 MG/ML 10 ML VIAL IV ONE (07:25)
[2018-10-27] MEDS ORDERED: GLYCOPYRROLATE 0.2 MG/ML 2 ML VIAL ONE (07:25)
[2018-10-27] MEDS ORDERED: PROPOFOL 10 MG/ML 20 ML VIAL IV ONE (07:25)
[2018-10-27] MEDS ORDERED: KETAMINE 10 MG/ML 20 ML VIAL ONE (07:25)
[2018-10-27] MEDS ORDERED: diphenhydrAMINE 50 MG/ML 1 ML VIAL ONE (07:25)
[2018-10-27] MEDS ORDERED: NEOSTIGMINE 1 MG/ML 10 ML VIAL ONE (07:25)
[2018-10-27] MEDS ORDERED: LIDOCAINE 1% INJ 10MG/ML (20 ML MDV) ONE (07:25)
[2018-10-27] MEDS ORDERED: MIDAZOLAM 2 MG/2 ML VIAL ONE (07:25)
[2018-10-27] MEDS ORDERED: LACTATED RINGERS 1,000 ML IV ONE (08:28)
[2018-10-27] MEDS ORDERED: NALOXONE 0.4 MG/ML 1 ML VIAL IV PRN (09:02)
--- NOTE | 2018-10-27 09:10 | P.OP ---
Date of Procedure: 10/27/18 Preoperative Diagnosis: #1: Large uterine fibroid. #2: Menorrhagia. #3: Pelvic pain #4: Secondary anemia Postoperative Diagnosis: Same Procedure(s) Performed: Total abdominal hysterectomy with bilateral salpingectomy Anesthesia: LIZ Surgeon: Ruben Pedersen Data Entry Supervisor #1: Titi Bose Estimated Blood Loss (ml): 400 Urine output (ml): 125 Condition: stable Disposition: PACU Indications for Procedure: Please see dictated H&P for intimate details of this patient's admission. In brief summary this is a pleasant 33-year-old multigravida patient who is a long- standing history of large uterine fibroids. The last year patient's fibroids to become larger and causing significant bleeding and secondary anemia. Fibroids are also causing pelvic pain. Patient I discussed further treatment this time we've elected to proceed with definitive surgical treatment via abdominal hysterectomy and also removal of her fallopian tubes. Patient and I had a long discussion about the surgery and risks including risks of infection, bleeding, possible injury bowel, bladder, vessels, ureters, and/or other organs. Patient understands risk of DVT and pulmonary embolism. All the patient's questions have been answered written consent obtained. Operative Findings: The uterus was approximately 16 weeks size. Bilateral fallopian tubes and ovaries appear normal. Description of Procedure: This patient has a Duramorph placed in the preoperative area. She is subsequently taken to the operating room where she is laid in the supine position. She subsequently undergoes general endotracheal anesthesia without in cident. With an adequate level of anesthesia she has a vaginal prep and Sousa catheter placed to straight drain. She has an abdominal prep and drape. Examination under anesthesia shows a 16-18 weeks size abdomen that does appear somewhat mobile. Scalpels taken the previous Pfannenstiel incision incised and extended. The fascia is then incised and extended bilaterally. Fascia is dissected off the rectus muscles. This is quite ratty from previous surgeries however is dissected adequately. Rectus muscles and and the peritoneal cavity is entered sharply. Peritoneal incision extended superior and inferior without difficulty. At this time the abdomen was inspected and the uterus is quite large [place] 16 weeks size. It is mobile follow her and is delivered through this Pfannenstiel incision. With this done the Bond retractor is then placed. Bladder blade is placed. 2 curved Kajal's are placed across the cornea of the uterus. At this time using a Gómez clamp I clamp transect and suture ligate the right fallopian tube. This is done with 0 Vicryl interrupted sutures. Similar technique is done on the right side for the right fallopian tube. This completed to curved Heaneys were placed across the endopelvic ligaments. These were transected and suture ligated. Excellent hemostasis is noted. Careful sharp dissection is done at this time of the bladder peritoneum and this comes down without difficulty. Serial clamps are then done of the uterine, uterosacral and cardinal ligaments. The base of the cervix is then amputated at the vaginal apex. Again this is secured with 0 Vicryl interrupted fashion and excellent hemostasis is noted. At this time the specimen was handed off. Copious irrigation is done and one small area of bleeding at the vaginal cuff was ligated with 0 Vicryl suture. Inspection of the shows a to be hemostatic. Further inspection shows that the upper abdomen otherwise appears normal. Excellent hemostasis is noted. This time the Yash retractor and all packs are removed. All counts are correct. The bowels level fall back into its normal position. The parietal peritoneum was then closed using a 0 Vicryl running fashion. Rectus muscles are reapproximated using interrupted 0 Vicryl. Fascia is then closed using 0 PDS. Again it does appear a bit ratty on the right side and therefore I put an additional [id number] stitch on the fascia of 0 Vicryl. No defects are noted. The subcutaneous tissues and closed using a 3-0 Vicryl. [place] this then applied for skin closure. Sterile dressing is applied. This point the procedure is ended. All counts are correct 3. There are no complications. Patient is awakened from anesthesia and taken to the recovery room in satisfactory condition.
[2018-10-27] MEDS ORDERED: KETOROLAC 30 MG/ML 1 ML VIAL IVP ONE (09:18)
[2018-10-27] MEDS: HYDROmorphone 0.5 MG/0.5 ML SYRINGE IVP PRN ×4 (09:23→09:45)
[2018-10-27] MEDS ORDERED: IBUPROFEN 600 MG TAB PO PRN (09:47)
[2018-10-27] MEDS ORDERED: SIMETHICONE 80 MG CHEWABLE PO PRN (09:47)
[2018-10-27] MEDS ORDERED: ONDANSETRON 4 MG/2 ML VIAL IVP PRN (09:47)
[2018-10-27] MEDS ORDERED: diphenhydrAMINE 50 MG/ML 1 ML VIAL IVP PRN (09:47)
[2018-10-27] MEDS: SENNOSIDES-DOCUSATE SODIUM 1 EACH TAB PO SCH ×2 (10:59→21:29)
[2018-10-27 11:43] VITALS: BMI 22.0
[2018-10-27] MEDS: LACTATED RINGERS 1,000 ML IV SCH ×2 (11:50→17:24)
[2018-10-27] MEDS ORDERED: diphenhydrAMINE 25 MG CAP PO PRN (15:10)
[2018-10-27] MEDS: KETOROLAC 30 MG/ML 1 ML VIAL IVP PRN ×2 (15:17→21:31)
[2018-10-27] MEDS: ceFAZolin 1,000 MG in DEXTROSE/WATER 1 50ML.BAG IVPB SCH (15:18)
[2018-10-28] MEDS: ceFAZolin 1,000 MG in DEXTROSE/WATER 1 50ML.BAG IVPB SCH (00:11)
[2018-10-28] MEDS: LACTATED RINGERS 1,000 ML IV SCH ×2 (00:11→09:27)
[2018-10-28] MEDS: KETOROLAC 30 MG/ML 1 ML VIAL IVP PRN ×3 (03:54→16:11)
--- NOTE | 2018-10-28 06:36 | P.PN ---
Progress Note - Text Progress Note Date: 10/28/18 Postoperative day #1. Patient is resting without new complaints. Vital signs are stable she is afebrile. Incision is intact and dry. She is not having any significant vaginal bleeding. CBC is pending at this time. Urine outputs been excellent. She tolerated liquids and some solid food last evening. Plan today is to advance to full regular diet, encouraged patient ambulate, allow the patient to shower, check a CBC, continue routine postoperative care. Patient did have a preoperative hemoglobin of 9.2 and I suspect today it will be low around 7 however she seems to be very tolerable at this level and therefore we'll just continue to watch.
[2018-10-28] MEDS: SENNOSIDES-DOCUSATE SODIUM 1 EACH TAB PO SCH ×2 (08:35→20:34)
[2018-10-28 08:42] LABS: Anisocytosis Slight; Basophils % (A) 0 %; Eosinophils # (A) 0.1 k/uL (0-0.7); Eosinophils % (A) 2 %; HCT 26.5 % (34.0-46.0); Hypochromasia Marked; Lymphocytes # (A) 0.7 k/uL (1.0-4.8); Lymphocytes % (A) 16 %; MCH 22.9 pg (25.0-35.0); MCHC 30.4 g/dL (31.0-37.0); MCV 75.5 fL (80.0-100.0); Mean Platelet Volume 7.2; Microcytosis Slight; Monocytes # (A) 0.4 k/uL (0-1.0); Monocytes % (A) 9 %; Neutrophils % (A) 71 %; Platelet Count 214 k/uL (150-450); RBC 3.51 m/uL (3.80-5.40); RDW 17.4 % (11.5-15.5); WBC 4.3 k/uL (3.8-10.6)
--- NOTE | 2018-10-28 11:20 | P.PN ---
Progress Note - Text Progress Note Date: 10/28/18 Postoperative day 1 status post total abdominal hysterectomy under general anesthesia, and intrathecal morphine given for postoperative analgesia, patient doing well, there is no anesthesia related complications, Patient had no headache, vital signs stable , Assessment and plan= postop day 1 , doing well there is no anesthesia related complication.
[2018-10-28] MEDS: Acetaminophen-Codeine 300-30mg TAB PO PRN (20:33)
[2018-10-29] MEDS: KETOROLAC 30 MG/ML 1 ML VIAL IVP PRN (00:58)
[2018-10-29 01:52] VITALS: TEMP 98.1
[2018-10-29] MEDS: LACTATED RINGERS 1,000 ML IV SCH (02:30)
--- NOTE | 2018-10-29 05:58 | P.PN ---
Progress Note - Text Progress Note Date: 10/29/18 Post operative day #2. Patient is resting without new complaints and wishes to go home. Patient is tolerating regular diet, ambulating, and urinating without difficulty. CBC yesterday showed her hemoglobin to be 8.0 which is very appropriate decrease. Patient's incision is intact and dry. Pathology showed normal leiomyoma 1359 g. Plan today is to continue routine post operative care and discharge home.
--- NOTE | 2018-10-29 05:59 | P.DS ---
Providers Date of admission: 10/27/18 06:01 Expected date of discharge: 10/29/18 Attending physician: Ruben Pedersen Primary care physician: Harvey Toribio - Discharge Diagnosis(es) (1) Fibroid uterus Current Visit: No Status: Acute (2) Menorrhagia Current Visit: No Status: Acute (3) Anemia Current Visit: No Status: Acute Hospital Course: Please see dictated H&P for intimate details of this patient's admission. Brief summary this pleasant 33-year-old multiparous patient admitted for elective total abdominal hysterectomy bilateral salpingectomy secondary to very large symptomatic uterine fibroid. Patient undergoes above-named surgery. Please see dictated operative note. Postoperative patient is very well patient's postoperative day #2 she is felt to be stable for discharge home follow up with me in 1 week. Procedures: Total abdominal hysterectomy and bilateral salpingectomy Patient Condition at Discharge: Good Plan - Discharge Summary Discharge Rx Participant: No New Discharge Prescriptions: New Ibuprofen [Motrin] 600 mg PO Q6HR PRN #40 tab PRN Reason: Mild Discomfort Acetaminophen-Codeine 300-30mg [Tylenol w/codeine #3] 2 each PO Q6HR PRN #24 tab PRN Reason: Severe Pain No Action [place]-3 Fatty Acids [[place]-3] 1,000 mg PO DAILY Cholecalciferol [Vitamin D3] 4,000 unit PO HS Iron Bisglycinate 25 mg PO HS Apriso(Mesalamine) 4 tab PO HS Discharge Medication List Cholecalciferol [Vitamin D3] 4,000 unit PO HS 02/04/17 [History] [place]-3 Fatty Acids [[place]-3] 1,000 mg PO DAILY 02/04/17 [History] Apriso(Mesalamine) 4 tab PO HS 10/25/18 [History] Iron Bisglycinate 25 mg PO HS 10/25/18 [History] Acetaminophen-Codeine 300-30mg [Tylenol w/codeine #3] 2 each PO Q6HR PRN #24 tab 10/29/18 [Rx] Ibuprofen [Motrin] 600 mg PO Q6HR PRN #40 tab 10/29/18 [Rx] Follow up Appointment(s)/Referral(s): Ruben Pedersen MD [STAFF PHYSICIAN] - 1 Week Patient Instructions/Handouts: Hysterectomy (DC) Activity/Diet/Wound Care/Special Instructions: No strenuous activity or heavy lifting for 6 weeks. No intercourse or anything per vagina for 6 weeks. Please call if any fever, chills, excessive vaginal bleeding, and/or abdominal pain. Discharge Disposition: HOME SELF-CARE
[2018-10-29] MEDS: SENNOSIDES-DOCUSATE SODIUM 1 EACH TAB PO SCH (09:05)
[2018-10-29] MEDS: Acetaminophen-Codeine 300-30mg TAB PO PRN (09:08)
[2018-10-29 09:20] VITALS: BP 96/67; PULSE 92; RESP 20
== END 2018-10-29 10:45 | disposition home or self-care (01) | DRG 742 ==
LOC: 2ORMAIN 06:01 → 6PED 09:00
PROVIDERS: ADMIT Obstetrics & Gynecology; ATTEND Obstetrics & Gynecology
PROC: 0UT70ZZ Resection of Bilateral Fallopian Tubes, Open Approach (ICD-10-PCS; 2018-10-27)
PROC: 0UT90ZZ Resection of Uterus, Open Approach (ICD-10-PCS; principal; 2018-10-27 07:30)
DX: D25.9 Leiomyoma of uterus, unspecified (principal); K50.90 Crohn's disease, unspecified, without complications; D64.9 Anemia, unspecified; J45.909 Unspecified asthma, uncomplicated; N92.0 Excessive and frequent menstruation with regular cycle; I49.8 Other specified cardiac arrhythmias; Z79.899 Other long term (current) drug therapy; Z88.5 Allergy status to narcotic agent; Z88.8 Allergy status to other drugs, medicaments and biological substances; Z82.49 Family history of ischemic heart disease and other diseases of the circulatory system
CPT/HCPCS: 81025; 85025; 86850; 86900; 86901; 88307

== ENCOUNTER → 2019-04-11 | Outpatient (CLI) | payer MEDICAID ==
[2019-04-11 07:32] LABS: Anisocytosis Slight; Basophils # (A) 0.1 k/uL (0-0.2); Basophils % (A) 1 %; Eosinophils # (A) 0.4 k/uL (0-0.7); Eosinophils % (A) 7 %; HCT 40.1 % (34.0-46.0); HGB 13.2 gm/dL (11.4-16.0); Lymphocytes % (A) 19 %; MCHC 32.9 g/dL (31.0-37.0); MCV 82.3 fL (80.0-100.0); Mean Platelet Volume 6.5; Monocytes # (A) 0.3 k/uL (0-1.0); Monocytes % (A) 6 %; Neutrophils # (A) 3.4 k/uL (1.3-7.7); Neutrophils % (A) 64 %; Platelet Count 303 k/uL (150-450); RBC 4.87 m/uL (3.80-5.40); RDW 17.1 % (11.5-15.5); WBC 5.4 k/uL (3.8-10.6)
[2019-04-11 11:44] LABS: ALT 13 U/L (8-44); AST 18 U/L (13-35); African American GFR (CKD) 95.3 (60.0-200.0); Alkaline Phosphatase 70 U/L (41-126); BUN/Creat Ratio 16.67 Ratio (12.00-20.00); Calcium 8.8 mg/dL (8.7-10.3); Carbon Dioxide 24.7 mmol/L (21.6-31.8); Chloride 110 mmol/L (96-109); Chol/HDL Ratio 1.74; Cholesterol 127 mg/dL (0-200); Glucose 93 mg/dL (70-110); Sodium 141 mmol/L (135-145); Total Bilirubin 1.1 mg/dL (0.3-1.2); Total Protein 6.2 g/dL (6.2-8.2); Triglycerides <50.0 mg/dL (0.0-149.0); VLDL Calculation 9.98 mg/dL (5.00-40.00)
== END | disposition home or self-care (01) ==
LOC: LABWHC1 06:44
PROVIDERS: ATTEND Physician Assistant Medical
DX: E55.9 Vitamin D deficiency, unspecified (principal); K50.10 Crohn's disease of large intestine without complications
CPT/HCPCS: 36415; 80053; 80061; 82306; 84443; 85025

== ENCOUNTER 2019-07-01 07:48 | Day surgery (SDC) | payer MEDICAID ==
[2019-06-30 10:20] VITALS: BMI 23.3
[~2019-07-01 07:48] MED LIST changes: -DEXAMETHASONE SOD PHOSPHATE 10 MG/ML 1 ML VIAL IV ONE; -MIDAZOLAM (PF) 2 MG/2 ML VIAL IV PRN; -ONDANSETRON 4 MG/2 ML VIAL IVP ONE; -SCOPOLAMINE 1.5MG/72HR PATCH TRANSDERM ONE; -ceFAZolin IN SWFI 2 GM/20 ML SYRINGE IVP ONE
[2019-07-01 08:30] VITALS: TEMP 98.5
[2019-07-01] MEDS ORDERED: PROPOFOL 10 MG/ML 20 ML VIAL IV ONE (09:08)
[2019-07-01] MEDS ORDERED: LIDOCAINE 1% INJ 10MG/ML (20 ML MDV) ONE (09:08)
--- NOTE | 2019-07-01 09:30 | P.PCN ---
Date of Procedure: 07/01/19 Procedure(s) Performed: BRIEF HISTORY: Patient is a 34-year-old pleasant female scheduled for an elective colonoscopy as a part of the long-standing history of Crohn's colitis diagnosed in 2002. Last colonoscopy was in March 2017 and was noted to have active patchy colitis involving the sigmoid and descending colon. Not on any maintenance medications. PROCEDURE PERFORMED: Colonoscopy with biopsy. PREOPERATIVE DIAGNOSIS: Long-standing history of Crohn's colitis. IV sedation per Anesthesia. PROCEDURE: After informed consent was obtained, the patient, was brought into the endoscopy unit. IV sedation was administered by Anesthesia under continuous monitoring. Digital rectal examination revealed any any matters skin tags, mild narrowing of the anus with anal fissures. Initially the Olympus CF-160 flexible video colonoscope was then inserted in the rectum, gradually advanced into the cecum without any difficulty. Careful examination was performed as the scope was gradually being withdrawn. Ileocecal valve and the appendiceal orifice were visualized and appeared normal. Prep was excellent. Mucosa of the cecum had 1 area of patchy erythema with ulcerations which was biopsied. Terminal ileum could not be intubated. The, ascending colon, transverse colon, appeared normal. There is narrowing of the proximal descending colon at 70 from 40-45 cm from the anal verge with mucosal erythema friability and ulcerations and the scope couldn't be advanced to this area and multiple biopsies were done. The distal descending colon and proximal sigmoid colon appeared normal. there was active sigmoid colitis in the distal sigmoid colon extensive from 20-25 cm from the anal verge with mucosal erythema friability and some narrowing of the lumen and biopsies were done from this area. Also there were pseudopolyps identified in this area. The rectum appeared normal. In the distal rectum there where some erosions with ulcerations involving the anus and multiple advances contacts identified. Retroflexion was performed in the rectum and no lesions were seen. The patient tolerated the procedure well. IMPRESSION: Crohn's colitis involving the sigmoid colon, proximal descending colon and descending colon with mucosal erythema, friability and serpiginous ulcerations status post multiple biopsies Mild narrowing of the distal sigmoid colon from 20-25 cm from the anal verge with active colitis Narrowing of the descending colon extending from 40-45 cm from the anal verge with mucosal erythema friability Perianal Crohn's with any matters skin tags, anal fissure and distal proctitis RECOMMENDATIONS: Findings of this examination were discussed with the patient as well as a family. She was advised to follow with the biopsy results. she'll be seen in office in 2-3 weeks. .
[2019-07-01 09:39] VITALS: RESP 18
[2019-07-01 09:58] VITALS: BP 108/68; PULSE 80
== END 2019-07-01 10:12 | disposition home or self-care (01) ==
LOC: ORWHC2ENDO 07:48
PROVIDERS: ATTEND Internal Medicine Gastroenterology
DX: K50.90 Crohn's disease, unspecified, without complications (principal); K60.2 Anal fissure, unspecified; K64.4 Residual hemorrhoidal skin tags; K63.5 Polyp of colon; K56.699 Other intestinal obstruction unspecified as to partial versus complete obstruction; I49.8 Other specified cardiac arrhythmias; K62.89 Other specified diseases of anus and rectum; Z79.899 Other long term (current) drug therapy; Z88.5 Allergy status to narcotic agent; Z88.8 Allergy status to other drugs, medicaments and biological substances
CPT/HCPCS: 88305; 45380; J2001; J2704

== ENCOUNTER → 2019-07-21 | Outpatient (CLI) | payer MEDICAID ==
[2019-07-21 13:23] LABS: Basophils % (A) 0 %; Eosinophils % (A) 1 %; HCT 42.5 % (34.0-46.0); HGB 13.9 gm/dL (11.4-16.0); Lymphocytes # (A) 1.5 k/uL (1.0-4.8); Lymphocytes % (A) 16 %; MCH 28.1 pg (25.0-35.0); MCHC 32.7 g/dL (31.0-37.0); Mean Platelet Volume 6.1; Monocytes # (A) 0.4 k/uL (0-1.0); Monocytes % (A) 4 %; Neutrophils # (A) 7.1 k/uL (1.3-7.7); Neutrophils % (A) 78 %; Platelet Count 348 k/uL (150-450); RBC 4.94 m/uL (3.80-5.40); RDW 13.4 % (11.5-15.5); WBC 9.2 k/uL (3.8-10.6)
[2019-07-21 20:40] LABS: ALT 16 U/L (8-44); AST 17 U/L (13-35); African American GFR (CKD) 109.9 (60.0-200.0); Albumin/Globulin Ratio 2.05 (1.60-3.17); Alkaline Phosphatase 77 U/L (41-126); C Reactive Protein <0.4 mg/dL (0.0-0.8); Carbon Dioxide 27.7 mmol/L (21.6-31.8); Chloride 105 mmol/L (96-109); Globulin 2.1 g/dL (1.6-3.3); Glucose 113 mg/dL (70-110); Non-African American GFR(CKD) 94.8 (60.0-200.0); Potassium 3.5 mmol/L (3.5-5.5); Sodium 140 mmol/L (135-145); Total Protein 6.4 g/dL (6.2-8.2)
[2019-07-21 21:23] LABS: Hepatitis B Surface Antigen Non-Reactive (Non-Reactive)
== END | disposition home or self-care (01) ==
LOC: LABWHC1 12:25
PROVIDERS: ATTEND Internal Medicine Gastroenterology
DX: K50.90 Crohn's disease, unspecified, without complications (principal)
CPT/HCPCS: 36415; 80053; 85025; 86140; 86480; 86704; 87340

== ENCOUNTER → 2020-05-03 | Outpatient (CLI) | payer MEDICAID ==
--- NOTE | 2020-05-03 12:09 | MM ---
Reason for exam: screening (asymptomatic). Baseline mammogram. History: Took hormonal contraceptives for 5 years. Physical Findings: Nurse Summary: 1.5cm nodule in the right breast at 11 o'clock (nurse neil). MG 3D Screening Mammo W/Cad Bilateral CC, MLO, and XCCL view(s) were taken. The breast tissue is heterogeneously dense. This may lower the sensitivity of mammography. No suspicious calcifications are seen. There is no discrete abnormality including area of concern. These results were verbally communicated with the patient and result sheet given to the patient on 05/03/20. ASSESSMENT: Incomplete: need additional imaging evaluation, BI-RAD 0 RECOMMENDATION: Ultrasound of the right breast. Manage patient on a clinical basis.
--- NOTE | 2020-05-03 12:11 | USB ---
Reason for exam: additional evaluation requested from abnormal screening. History: Took hormonal contraceptives for 5 years. US Breast Workup Limited RT Right limited breast ultrasound including focal area of concern, retroareolar and axilla demonstrates no cystic or solid lesion seen. These results were verbally communicated with the patient and result sheet given to the patient on 05/03/20. ASSESSMENT: Negative, BI-RAD 1 RECOMMENDATION: Routine screening mammogram of both breasts at age 38. Manage patient on a clinical basis.
== END | disposition home or self-care (01) ==
LOC: RADMAMWWP 09:32
PROVIDERS: ATTEND Obstetrics & Gynecology
DX: N63.10 Unspecified lump in the right breast, unspecified quadrant (principal); Z12.31 Encounter for screening mammogram for malignant neoplasm of breast
CPT/HCPCS: 77063; 77067

== ENCOUNTER → 2020-06-08 | Outpatient (CLI) | payer MEDICAID ==
[2020-06-08 11:22] LABS: Basophils % (A) 1 %; Eosinophils # (A) 0.2 k/uL (0-0.7); Eosinophils % (A) 4 %; HCT 40.6 % (34.0-46.0); HGB 13.7 gm/dL (11.4-16.0); Lymphocytes # (A) 1.1 k/uL (1.0-4.8); Lymphocytes % (A) 22 %; MCH 30.6 pg (25.0-35.0); MCHC 33.7 g/dL (31.0-37.0); MCV 90.8 fL (80.0-100.0); Mean Platelet Volume 6.6; Monocytes # (A) 0.3 k/uL (0-1.0); Monocytes % (A) 5 %; Neutrophils # (A) 3.4 k/uL (1.3-7.7); Neutrophils % (A) 66 %; Platelet Count 232 k/uL (150-450); RBC 4.47 m/uL (3.80-5.40); RDW 12.5 % (11.5-15.5); WBC 5.1 k/uL (3.8-10.6)
[2020-06-08 16:14] LABS: ALT 11 U/L (8-44); AST 17 U/L (13-35); African American GFR (CKD) 109.2 (60.0-200.0); Alkaline Phosphatase 57 U/L (41-126); C Reactive Protein <0.4 mg/dL (0.0-0.8); Calcium 8.6 mg/dL (8.7-10.3); Chloride 109 mmol/L (96-109); Cholesterol 132 mg/dL (0-200); Globulin 2.1 g/dL (1.6-3.3); Glucose 83 mg/dL (70-110); Non-African American GFR(CKD) 94.2 (60.0-200.0); Potassium 4.3 mmol/L (3.5-5.5); Sodium 141 mmol/L (135-145); Total Bilirubin 1.8 mg/dL (0.3-1.2); Total Protein 6.3 g/dL (6.2-8.2); Triglycerides <50.0 mg/dL (0.0-149.0)
== END | disposition home or self-care (01) ==
LOC: LABWHC1 09:39
PROVIDERS: ATTEND Internal Medicine Gastroenterology
DX: Z00.00 Encounter for general adult medical examination without abnormal findings (principal); Z20.828 Contact with and (suspected) exposure to other viral communicable diseases; K50.10 Crohn's disease of large intestine without complications; E55.9 Vitamin D deficiency, unspecified
CPT/HCPCS: 36415; 80053; 80061; 82306; 84443; 85025; 86140

== ENCOUNTER 2021-07-14 14:30 | Emergency (ER) | payer MEDICAID ==
--- NOTE | 2021-07-14 20:10 | ED ---
General Adult HPI - General Chief complaint: Upper Respiratory Infection Stated complaint: Wants Antibodies Time Seen by Provider: 07/14/21 18:38 Source: patient, family, RN notes reviewed, old records reviewed Mode of arrival: ambulatory Limitations: no limitations - History of Present Illness Initial comments: Patient is a 36-year-old female with past medical history remarkable for Crohn's disease on Humira who presents emergency Department Covid-positive seeking monoclonal antibody therapy. Positive test was today. Patient has had symptoms since Thursday. She was not vaccinated for Covid. She is having upper respiratory symptoms, body aches, mild nonproductive cough, nasal congestion. Had nausea yesterday but that is since resolved. Decreased appetite. Otherwise has no acute complaints at this time. She would like monoclonal antibodies, however she is concerned as she did have a prior reaction to Remicade monoclonal antibodies. She did have a transfusion reaction at that time and has not been exposed since. She is hesitant to receive monoclonals but would like to if it is safe. I evaluated the patient when she was placed in a room. - Related Data Home Medications Medication Instructions Recorded Confirmed Cholecalciferol [Vitamin D3] 5,000 unit PO DAILY 02/04/17 07/01/19 [place]-3 Fatty Acids [[place]-3] 2,000 mg PO DAILY 02/04/17 07/01/19 Apriso(Mesalamine) 4 tab PO HS 10/25/18 07/01/19 Cannabidiol (Cbd) [Epidiolex] 1 dose PO QAM 06/30/19 07/01/19 Previous Rx's Medication Instructions Recorded Acetaminophen [Tylenol Extra 500 mg PO Q6HR 7 Days #28 packet 07/14/21 Strength] Albuterol Inhaler [Ventolin Hfa 1 puff INHALATION RT-QID #8 gm 07/14/21 Inhaler] Allergies Allergy/AdvReac Type Severity Reaction Status Date / Time infliximab [From Remicade] Allergy Anaphylaxis Verified 07/14/21 15:47 morphine AdvReac Nausea & Verified 07/14/21 15:47 [From Duramorph (PF)] Vomiting Review of Systems ROS Statement: Those systems with pertinent positive or pertinent negative responses have been documented in the HPI. Review of Systems: CONST: Denies fever EYES: Denies blurry vision ENT: Endorses URI symptoms, nasal congestion, cough C/V: Denies Chest pain RESP: Denies shortness of breath GI: Denies abdominal pain : Denies dysuria SKIN: Denies rash. MSK: Denies joint pain. NEURO: Denies headache ROS Other: All systems not noted in ROS Statement are negative. Past Medical History Past Medical History: Asthma Additional Past Medical History / Comment(s): CROHN'S, hx rectal bleeding, POTS. History of Any Multi-Drug Resistant Organisms: None Reported Past Surgical History: Section, Ear Surgery, Hysterectomy, Orthopedic Surgery Additional Past Surgical History / Comment(s): X3, COLONOSCOPY, EGD, left carpal tunnel. Past Anesthesia/Blood Transfusion Reactions: Motion Sickness, Postoperative Nausea & Vomiting (PONV) Past Psychological History: Anxiety Smoking Status: Never smoker Past Alcohol Use History: Occasional Past Drug Use History: None Reported - Past Family History Father Family Medical History: No Reported History Additional Family Medical History / Comment(s): hypertension Mother Family Medical History: No Reported History General Exam - General Exam Comments Initial Comments: General: Appears in no acute distress. HEAD: Normal with no signs of head trauma. EYES: PERRLA, EOMI, conjunctiva normal, no discharge. ENT: Hearing grossly intact, normal oropharynx. RESPIRATORY: Clear breath sounds bilaterally. No wheezes, rales, or rhonchi. No increased work of breathing. Patient is not hypoxic. C/V: Regular rate and rhythm. S1 and S2 auscultated, no edema, peripheral pulses 2+ and intact throughout ABD: Abd is soft, nontender, nondistended EXT: Normal range of motion, no obvious deformity SKIN: No rashes or lesions observed on exposed skin. NEURO: Alert and oriented 4. Limitations: no limitations Course Vital Signs 07/14/21 07/14/21 07/14/21 15:42 20:00 21:29 Temperature 97.7 F Pulse Rate 90 92 Respiratory 18 20 20 Rate Blood Pressure 121/87 134/68 O2 Sat by Pulse 100 100 Oximetry 07/14/21 07/14/21 07/14/21 22:00 22:30 22:45 Temperature 98.6 F Pulse Rate 94 90 92 Respiratory 20 20 20 Rate Blood Pressure 130/80 136/80 130/77 O2 Sat by Pulse 99 98 98 Oximetry Medical Decision Making - Medical Decision Making Patient is a 36-year-old female on Humira would like the Covid 19 medical antibodies. She does have a history of a transfusion reaction from Remicade monoclonal antibodies. I performed a online search for any reactions and contacted the pharmacist here on staff. We both yielded search results that we believe transfusion reaction risk does not seem to be increased with her history. Regeneron is a human monoclonal antibody which she is receiving, versus the mouse monoclonal antibody in Remicade. Therefore patient will be monitored closely for any form of reaction but at this time I do believe is safe to administer. I discussed this with the patient and she consented to treatment. Patient tolerated the treatment well. There was no reaction. Patient will be discharged home. I will provide the patient with a prescription for Tylenol, albuterol. I instructed the patient to follow up with their PCP in the next 3 days. I explained that the patient should return to the emergency department if they experience any worsening symptoms. Strict return precautions were discussed with the patient. The patient expressed understanding of these instructions. I answered all questions that the patient had. The patient was discharged home in fair condition with their prescriptions and follow up information. - Lab Data Lab Results 07/14/21 Range/Units 15:59 Coronavirus (PCR) Detected A (Not Detectd) Disposition Clinical Impression: COVID-19 virus infection Disposition: HOME SELF-CARE Condition: Fair Instructions (If sedation given, give patient instructions): Coronavirus Disease 2019 (COVID-19) Prescriptions: Acetaminophen [Tylenol Extra Strength] 500 mg PO Q6HR 7 Days #28 packet Albuterol Inhaler [Ventolin Hfa Inhaler] 1 puff INHALATION RT-QID #8 gm Is patient prescribed a controlled substance at d/c from ED?: No Referrals: Harvey Toribio DO [Primary Care Provider] - 1-2 days
[2021-07-14] MEDS ORDERED: SODIUM CHLORIDE 0.9% 50 ML IVPB ONE (20:45)
[2021-07-14] MEDS ORDERED: CASIRIVIMAB (REGN10933) (EUA) 600 MG, IMDEVIMAB (REGN10987) (EUA) 600 MG in SODIUM CHLO... IVPB ONE (20:45)
[2021-07-14] MEDS ORDERED: diphenhydrAMINE 50 MG/ML 1 ML VIAL IVP STA (20:46)
[2021-07-14] MEDS ORDERED: FAMOTIDINE 20 MG/2 ML VIAL IV STA (20:47)
[2021-07-14] MEDS ORDERED: methylPREDNISolone SOD SUCCI 125 MG/2 ML VIAL IV STA (20:47)
[2021-07-14 23:36] VITALS: RESP 20
[2021-07-14 23:42] VITALS: BP 130/77; PULSE 92; TEMP 98.6
== END 2021-07-14 23:05 | disposition home or self-care (01) ==
LOC: EC 14:30
DX: U07.1 COVID-19 (principal); J45.909 Unspecified asthma, uncomplicated; F41.9 Anxiety disorder, unspecified; Z88.5 Allergy status to narcotic agent; Z90.710 Acquired absence of both cervix and uterus
CPT/HCPCS: 99283; 96374; 96375; 87635; J2930; Q0243

== ENCOUNTER → 2022-07-16 | Day surgery (SDC) | payer MEDICAID ==
[2022-07-14 16:15] VITALS: BMI 24.7
[~2022-07-16] MED LIST changes: +LACTATED RINGERS 1,000 ML IV ONE; +LIDOCAINE 1% (10MG/ML) FOR IV START INTRADERMA PRN; -LIDOCAINE 1% 20 ML VIAL (10MG/ML) FOR IV START INTRADERMA PRN; +LIDOCAINE 2% INJ 20 MG/ML (2 ML VIAL) ONE; +MIDAZOLAM 2 MG/2 ML VIAL ONE; +PROPOFOL 10 MG/ML 20 ML VIAL IV ONE
[2022-07-16 10:40] VITALS: TEMP 97.7
[2022-07-16 10:59] LABS: Basophils # (A) 0.1 k/uL (0-0.2); Basophils % (A) 1 %; Eosinophils # (A) 0.2 k/uL (0-0.7); Eosinophils % (A) 3 %; HCT 42.5 % (34.0-46.0); HGB 14.8 gm/dL (11.4-16.0); Lymphocytes # (A) 1.5 k/uL (1.0-4.8); Lymphocytes % (A) 22 %; MCH 30.7 pg (25.0-35.0); MCHC 34.8 g/dL (31.0-37.0); MCV 88.4 fL (80.0-100.0); Mean Platelet Volume 7.5; Monocytes # (A) 0.4 k/uL (0-1.0); Monocytes % (A) 6 %; Neutrophils # (A) 4.3 k/uL (1.3-7.7); Neutrophils % (A) 65 %; Platelet Count 264 k/uL (150-450); RBC 4.82 m/uL (3.80-5.40); RDW 12.4 % (11.5-15.5); WBC 6.6 k/uL (3.8-10.6)
[2022-07-16 11:10] LABS: ALT 21 U/L (4-34); AST 26 U/L (14-36); African American GFR (CKD) >90 (>60 ml/min/1.73 sqM); Albumin 4.7 g/dL (3.5-5.0); Alkaline Phosphatase 75 U/L (38-126); Anion Gap 9 mmol/L; Blood Urea Nitrogen 10 mg/dL (7-17); C Reactive Protein 0.7 mg/dL (<1.0); Calcium 8.5 mg/dL (8.4-10.2); Carbon Dioxide 23 mmol/L (22-30); Chloride 108 mmol/L (98-107); Glucose 79 mg/dL (74-99); Non-African American GFR(CKD) >90 (>60 ml/min/1.73 sqM); Potassium 3.9 mmol/L (3.5-5.1); Sodium 140 mmol/L (137-145); Total Bilirubin 1.5 mg/dL (0.2-1.3); Total Protein 7.5 g/dL (6.3-8.2)
--- NOTE | 2022-07-16 12:01 | P.PCN ---
Date of Procedure: 07/16/22 Procedure(s) Performed: BRIEF HISTORY: Patient is a 37-year-old pleasant white female scheduled for an elective colonoscopy as a part of surveillance of long-standing history of Crohn's colitis.. She is currently maintained on Humira injections every 2 weeks and remains in clinical remission. PROCEDURE PERFORMED: Colonoscopy with random biopsies and snare polypectomy. PREOPERATIVE DIAGNOSIS: Long-standing history of Crohn's colitis. IV sedation per Anesthesia. PROCEDURE: After informed consent was obtained, the patient, was brought into the endoscopy unit. IV sedation was administered by Anesthesia under continuous monitoring. Digital rectal examination revealed multiple skin tags and mild anal stricture. Initially the Olympus CF-160 flexible video colonoscope was then inserted in the rectum, gradually advanced into the cecum without any difficulty. Careful examination was performed as the scope was gradually being withdrawn. Ileocecal valve and the appendiceal orifice were visualized and appeared normal. Ileocecal valve appeared patent. Terminal ileum appeared normal. Prep was excellent. Mucosa of the cecum, ascending colon, transverse colon, appeared normal. The descending colon there was a 1 cm polyp that was removed by snare polypectomy. There was early narrowing of the descending colon but no active colitis seen. Rest of the descending colon, sigmoid colon, and rectum appeared normal. Retroflexion was performed in the rectum and no lesions were seen. Random biopsies were done from the rectum to cecum and every 10 cm into the rule out dysplasia. The patient tolerated the procedure well. IMPRESSION: No evidence of active Crohn's disease Normal-appearing terminal ileum 1 cm descending colon polyp status post polypectomy Mild narrowing of the distal descending colon but no evidence of active colitis Multiple anal skin tags. RECOMMENDATIONS: Findings of this examination were discussed with the patient as well as a family. She was advised to follow with the biopsy results. Continue with Humira every 2 weeks. Repeat colonoscopy in 2 years..
[2022-07-16 12:49] LABS: Erythrocyte Sedimentation Rate 4 mm/hr (0-20)
[2022-07-16 12:51] VITALS: BP 101/71; PULSE 80; RESP 18
== END ==
LOC: ORWHC2ENDO 09:59
PROVIDERS: ATTEND Internal Medicine Gastroenterology
DX: K63.5 Polyp of colon (principal); K50.10 Crohn's disease of large intestine without complications; K62.89 Other specified diseases of anus and rectum; J45.909 Unspecified asthma, uncomplicated; N20.0 Calculus of kidney; F41.9 Anxiety disorder, unspecified; Z79.899 Other long term (current) drug therapy; Z88.8 Allergy status to other drugs, medicaments and biological substances
CPT/HCPCS: 88305; 80053; 85652; 85025; 86140; 45380; 45385; J2250; J2704; J2001

== ENCOUNTER → 2023-10-28 | Outpatient (CLI) | payer MEDICAID ==
[2023-10-28 17:01] LABS: Basophils # (A) 0.07 X 10*3/uL (0.00-0.10); Basophils % (A) 0.8 %; Eosinophils # (A) 0.17 X 10*3/uL (0.04-0.35); Eosinophils % (A) 1.8 %; HCT 41.4 % (37.2-46.3); HGB 14.3 g/dL (12.0-15.0); Lymphocytes # (A) 1.89 X 10*3/uL (0.90-5.00); Lymphocytes % (A) 20.6 %; MCH 30.6 pg (27.0-32.0); MCHC 34.5 g/dL (32.0-37.0); MCV 88.5 FL (80.0-97.0); Mean Platelet Volume 9.1 FL (9.5-12.2); Monocytes # (A) 0.76 X 10*3/uL (0.20-1.00); Monocytes % (A) 8.3 %; NRBC Per 100 WBC 0 X 10*3/uL (0.00-0.01); Neutrophils # (A) 6.28 X 10*3/uL (1.80-7.70); Neutrophils % (A) 68.3 %; Platelet Count 300 X 10*3/uL (140-440); RBC 4.68 X 10*6/uL (4.10-5.20); RDW 12.7 % (11.5-14.5); WBC 9.19 X 10*3/uL (4.50-10.00)
[2023-10-28 17:04] LABS: ALT 14 U/L (8-44); AST 17 U/L (13-35); Albumin 4.7 g/dL (3.8-4.9); Albumin/Globulin Ratio 1.68 Ratio (1.60-3.17); Alkaline Phosphatase 78 U/L (41-126); BUN/Creat Ratio 17.22 Ratio (12.00-20.00); Blood Urea Nitrogen 15.5 mg/dL (9.0-27.0); Calcium 9.8 mg/dL (8.7-10.3); Carbon Dioxide 26.3 mmol/L (21.6-31.8); Chloride 102 mmol/L (96-109); Globulin 2.8 g/dL (1.6-3.3); Glucose 85 mg/dL (70-110); Sodium 138 mmol/L (135-145); Total Bilirubin 1.1 mg/dL (0.3-1.2); Total Protein 7.5 g/dL (6.2-8.2)
== END | disposition home or self-care (01) ==
LOC: LABWHC1 11:27
PROVIDERS: ATTEND Nurse Practitioner Family
DX: K50.90 Crohn's disease, unspecified, without complications (principal)
CPT/HCPCS: 36415; 80053; 85025

== ENCOUNTER → 2024-05-20 | Outpatient (CLI) | payer MEDICAID ==
[2024-05-20 15:38] LABS: Basophils # (A) 0.04 X 10*3/uL (0.00-0.10); Basophils % (A) 0.8 %; Eosinophils # (A) 0.18 X 10*3/uL (0.04-0.35); Eosinophils % (A) 3.7 %; HCT 36.5 % (37.2-46.3); HGB 12.4 g/dL (12.0-15.0); Immature Grans, Automated 0 %; Lymphocytes # (A) 1.38 X 10*3/uL (0.90-5.00); Lymphocytes % (A) 28.6 %; MCV 91.3 FL (80.0-97.0); Mean Platelet Volume 9.6 FL (9.5-12.2); Monocytes % (A) 8.3 %; NRBC Per 100 WBC 0 X 10*3/uL (0.00-0.01); Neutrophils # (A) 2.83 X 10*3/uL (1.80-7.70); Neutrophils % (A) 58.6 %; Platelet Count 262 X 10*3/uL (140-440); RDW 12.8 % (11.5-14.5); WBC 4.83 X 10*3/uL (4.50-10.00)
[2024-05-20 16:51] LABS: ALT 12 U/L (8-44); AST 18 U/L (13-35); Albumin 4.2 g/dL (3.8-4.9); Alkaline Phosphatase 67 U/L (41-126); BUN/Creat Ratio 13.38 Ratio (12.00-20.00); Blood Urea Nitrogen 10.7 mg/dL (9.0-27.0); Calcium 8.5 mg/dL (8.7-10.3); Carbon Dioxide 23.9 mmol/L (21.6-31.8); Chloride 105 mmol/L (96-109); Globulin 2.1 g/dL (1.6-3.3); Glucose 88 mg/dL (70-110); Potassium 3.8 mmol/L (3.5-5.5); Sodium 139 mmol/L (135-145); Total Bilirubin 0.7 mg/dL (0.3-1.2); Total Protein 6.3 g/dL (6.2-8.2)
== END | disposition home or self-care (01) ==
LOC: LABWHC1 10:14
PROVIDERS: ATTEND Nurse Practitioner Family
DX: K50.90 Crohn's disease, unspecified, without complications (principal)
CPT/HCPCS: 36415; 80053; 85025

== ENCOUNTER → 2024-10-14 | Outpatient (CLI) | payer MEDICAID ==
--- NOTE | 2024-10-14 08:39 | MM ---
Reason for Exam: Screening (asymptomatic). Last mammogram was performed 4 year(s) and 5 month(s) ago. Patient History: Menarche at age 10. First Full-Term at age 27. Hysterectomy at age 33. Patient used Hormonal Contraceptives for 5 years. Last menstrual period: Risk Values: Love 5 year model risk: 0.7%. NCI Lifetime model risk: 11.0%. Prior Study Comparison: 05/03/2020 Bilateral Screening Mammogram, [facility]. Tissue Density: The breasts are heterogeneously dense, which may obscure small masses. Findings: Analyzed By CAD. Right breast: There is no suspicious group of microcalcifications or new suspicious mass. Left breast: There is no suspicious group of microcalcifications or new suspicious mass. Overall Assessment: Negative, BI-RAD 1 Management: Screening Mammogram of both breasts in [address] [facility] will attempt to contact patient to return for supplemental views and ultrasound if indicated. Patient should continue monthly self-breast exams. A clinical breast exam by your physician is recommended on an annual basis. This exam should not preclude additional follow-up of suspicious palpable abnormalities. Note on Love scores and lifetime risk: 1. A Love score greater than 3% is considered moderate risk. If this is the case, consider specialist referral to assess eligibility for a risk reducing agent. 2. If overall lifetime risk for the development of breast cancer is 20% or higher, the patient may qualify for future screening with alternating mammogram and breast MRI. [facility], , 10/14/2024 8:36 AM. Electronically signed and approved by: Joaquin Perales DO
== END | disposition home or self-care (01) ==
LOC: RADMAMWWP 07:59
PROVIDERS: ATTEND Family Medicine
DX: Z12.31 Encounter for screening mammogram for malignant neoplasm of breast (principal); R92.333 Mammographic heterogeneous density, bilateral breasts
CPT/HCPCS: 77063; 77067

== ENCOUNTER → 2024-11-16 | Outpatient (CLI) | payer MEDICAID ==
[2024-11-17 02:10] LABS: Basophils # (A) 0.04 X 10*3/uL (0.00-0.10); Basophils % (A) 0.8 %; Eosinophils # (A) 0.14 X 10*3/uL (0.04-0.35); Eosinophils % (A) 2.6 %; HCT 38.5 % (37.2-46.3); HGB 13.2 g/dL (12.0-15.0); Lymphocytes # (A) 1.81 X 10*3/uL (0.90-5.00); MCH 30.2 pg (27.0-32.0); MCHC 34.3 g/dL (32.0-37.0); MCV 88.1 FL (80.0-97.0); Mean Platelet Volume 9.7 FL (9.5-12.2); Monocytes # (A) 0.53 X 10*3/uL (0.20-1.00); NRBC Per 100 WBC 0 X 10*3/uL (0.00-0.01); Neutrophils # (A) 2.79 X 10*3/uL (1.80-7.70); Neutrophils % (A) 52.4 %; Platelet Count 269 X 10*3/uL (140-440); RBC 4.37 X 10*6/uL (4.10-5.20); RDW 12.5 % (11.5-14.5); WBC 5.32 X 10*3/uL (4.50-10.00)
[2024-11-17 02:30] LABS: ALT 17 U/L (8-44); AST 22 U/L (13-35); Albumin 4.6 g/dL (3.8-4.9); Albumin/Globulin Ratio 1.84 Ratio (1.60-3.17); Alkaline Phosphatase 69 U/L (41-126); Blood Urea Nitrogen 10.8 mg/dL (9.0-27.0); Calcium 8.9 mg/dL (8.7-10.3); Carbon Dioxide 22.4 mmol/L (21.6-31.8); Chloride 104 mmol/L (96-109); Globulin 2.5 g/dL (1.6-3.3); Glucose 87 mg/dL (70-110); Potassium 3.7 mmol/L (3.5-5.5); Sodium 139 mmol/L (135-145); Total Bilirubin 0.9 mg/dL (0.3-1.2); Total Protein 7.1 g/dL (6.2-8.2)
== END | disposition home or self-care (01) ==
LOC: LABWHC1 16:26
PROVIDERS: ATTEND Internal Medicine Gastroenterology
DX: K50.90 Crohn's disease, unspecified, without complications (principal)
CPT/HCPCS: 36415; 80053; 85025